=== PATIENT | male | born 1955 | race Caucasian/White ===

== ENCOUNTER 2024-09-22 08:53 | Outpatient (AMB) | payer MEDICARE, SELFPAY ==
--- OUTSIDE RECORDS SUMMARY | 2024-09-22 09:20 | XMS_ITS | Encounter Summary ---
Author Organization [facility] Address [address] [facility] [address] [place] [address] Phone Care Team Providers Care Health Care Coach Name Role Phone Gerard Ribeiro MD Primary Care Provider [phone] Encounter Details Date Type Department Care Team ([facility] st Contact Info) Description 12/03/2020 Procedure Pass [facility] Physicians - Endoscopy - [place] [address] [place] [address] Social History Tobacco Use Types Packs/Day Years Used Date Smoking Tobacco: Never Smokeless Tobacco: Never Alcohol Use Standard Drinks/Week Comments Yes 0 (1 standard drink = 0.6 oz pur e alcohol) occasional Sex and Gender Information Value Date Recorded Sex Assigned at Not on file Gender Identity Not on file Sexual Orientation Not on file documented as of this encounter Plan of Treatment Not on file documented as of this encounter Visit Diagnoses Not on filedocumented in this encounter Care Teams Health Care Coach Relationship Specialty Start Date End Date Gerard Ribeiro MD [address] [place], [place] [address] [address] PCP - General Family Medicine 02/16/20 documented as of this encounter Additional Source Comments The information contained in this document represents components of the legal health record. It is not the complete legal health record.[facility]
--- OUTSIDE RECORDS SUMMARY | 2024-09-22 09:20 | XMS_ITS | Patient Health Record ---
Author Organization [employer] [facility] Address [address] [address] Care Team Providers Care Snow Groomer Name Role Phone NO PCP, no pcp Primary Care Provider Elsa Ribeiro MD, [facility] [phone] Allergies No Known Allergies Reason For Referral No Information Medications Medication SIG (Take, Route, Frequency, Duration) Notes Start Date End Date Status Lisinopril 20 MG TAKE 1 TABLET BY KERRI TH EVERY DAY for 90 days Active Atorvastatin Calcium 20 MG TAKE 1 TABLET BY MOUTH EVERY DAY for 90 Active Esomeprazole Magnesium 20 MG 1 capsule Orally qd Active Immunizations Vaccine Route Administration Date Status Comme nts Moderna Covid 19 Vaccine 2nd dose Unknown 09/25/2020 Ad ministered Moderna Covid 19 Vaccine 2nd dose Unknown 10/23/2020 Ad ministered Moderna Covid 19 Vaccine 2nd dose Unknown 05/13/2021 Ad ministered Prevnar 13 Unknown 04/23/2015 Administered R2V (Shingrix) Unknown 04/06/2021 Administered Tdap Unknown 05/10/2021 Administered Social History Tobacco Use: Social History Observation Description Date Details (start date - stop date) Never Smoker NA - NA Sex Assigned At : Social History Observation Description Sex Assigned At Unknown cigarettes Question Answer Notes Are you a nonsmoker 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 [place] 2 kids 4 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 [place] 2 kids 4 GC retired business architect-From [place] 2 kids 4 GC retired business architect-From [place] 2 kids 4 GC Problems Problem Type SNOMED Code ICD Code Onset Dates Problem Status W/U Status Risk Notes Problem 905242429 Mixed hyperlipidemia (E78.2) Active confirmed Problem 404229294 Chronic GERD (K21.9) Active confirmed Problem 64661620 Hypertension, unspecified type (I10) Active confirmed Encounters Encounter Location Date Provider Diagnosis [facility] In [address] [address] 04/14/2024 Gerard Ribeiro MD Plan Of Treatment No Information Insurance Providers Payer Name Payer Address Payer Phone Subscriber Number Group Number Insured Name Patient Relationship to Insured Coverage Start Date Coverage End Date [employer] Medicare PPO/HMO [address] [place] [phone] [id number] Navneet Schroeder Self - patient is the insured Medicare Part B [address] [facility] [place] [phone] [id number] Navneet Schroeder Self - patient is the insured Medical (General) History Medical History History ICD Code Physical Exam last done on:06/16/2023 htn colonoscopy sched 12/03/20, due 11/2030 GERD hyperlipidemia Surgical History Surgery Date(Month/Year) hernia surgery
--- OUTSIDE RECORDS SUMMARY | 2024-09-22 09:20 | XMS_ITS | Clinical Summary ---
Author Organization [facility] Address [address] [place] [address] Phone Care Team Providers Care Bar Catcher Name Role Phone Gerard Ribeiro MD Primary Care Provider [phone] Allergies No known active allergies Medications Medication Sig Dispensed Refills Start Date End Date Status quinapriL (ACCUPRIL) 10 MG tablet Take 10 mg by mouth daily. 11/16/2020 Active omeprazole (PRILOSEC) 20 mg TbEC Take 20 mg by mouth daily before breakfast. Active Active Problems Problem Noted Date Diagnosed Date Hypertensive disorder Social History Tobacco Use Types Packs/Day Years Used Date Smoking Tobacco: Never Smokeless Tobacco: Never Alcohol Use Standard Drinks/Week Comments Yes 0 (1 standard drink = 0.6 oz pur e alcohol) occasional Education Answer Date Recorded Are you interested in more education? Not on lita e 11/03/2022 Are you concerned about learning? Not on file 11/03/2022 No 11/03/2022 No 11/03/2022 Digital Access Answer Date Recorded No 12/02/2022 No 12/02/2022 No 12/02/2022 Reliable internet access at home? Not on file 12/02/2022 Device with a working camera? Not on file Sex and Gender Information Value Date Recorded Sex Assigned at Not on file Gender Identity Not on file Sexual Orientation Not on file Last Filed Vital Signs Vital Sign Reading Time Taken Comments Blood Pressure 108/56 12/03/2020 1:09 PM EDT Pulse 55 12/03/2020 1:09 PM EDT Temperature 36.2 ??C (97.2 ??F) 12/03/2020 12:22 PM E DT Respiratory Rate 18 12/03/2020 1:09 PM EDT Oxygen Saturation 97% 12/03/2020 1:09 PM EDT Inhaled Oxygen Concentration - - Weight 78.9 kg (174 lb) 12/03/2020 12:22 PM EDT Height 177.8 cm (5' 10 ) 12/03/2020 12:22 PM EDT Body Mass Index 24.97 12/03/2020 12:22 PM EDT Plan of Treatment Health Maintenance Due Date Last Done Comments Adult Td,Tdap Booster 1955 BLOOD PRESSURE 1955 CREATININE LEVEL 1954 LIPID PANEL 1954 POTASSIUM LEVEL 1954 DEPRESSION SCREENING 1966 HEPATITIS C SCREENING 02/18/1972 COLOGUARD 1999 FIT TEST 1999 FOBT 1999 SIGMOIDOSCOPY 1999 VIRTUAL COLONOSCOPY 1999 ZOSTER VACCINES (1 of 2) 02/18/2004 PNEUMOCOCCAL VACCINES (50+ years) (2 of 2 - PPSV23) 04/23/2016 04/23/2015 INFLUENZA VACCINE (#1) 2024 8, 03/30/2017 COVID-19 VACCINE (3 - 2023-2 5 season) 2024 10/23/2020, 09/25/2020 RSV VACCINE (1 - 1-dose 75+ series) 2029 COLONOSCOPY 12/03/2030 12/03/2020 COLORECTAL CANCER SCREENING 12/03/2030 SMOKING STATUS SCREENING (On ce After 26 Yrs) Completed 12/03/2020 HEPATITIS A VACCINES Aged Out No long er eligible based on patient's age to complete this topic HIB VACCINES Aged Out No longer eligi ble based on patient's age to complete this topic MENINGOCOCCAL VACCINES (ACWY) Aged Out No longer eligible based on patient's age to complete this topic Medical Devices Not on file Procedures Procedure Name Priority Date/Time Associated Diagnosis Comments COLONOSCOPY PROCDOC *DO NOT USE* Routine 12/03/2020 12:55 PM EDT Special screening for malignant neoplasms, colon from Last 3 Months or Most Recently Relevant to Health Maintenance Results * COLONOSCOPY PROCDOC *DO NOT USE* (12/03/2020 12:55 PM EDT) Narrative Carolina Morocho MD - 12/03/2020 12:55 PM EDT Carolina Morocho MD ? 12/03/2020 12:56 PM [facility] Navneet Frazier 1955 PROCEDURE: COLONOSCOPY SCREENING Procedure Date: 12/03/20 Prep Quality: ??Excellent Indication: Navneet Frazier is a 65 y.o. male who presents for screening colonoscopy, last colonoscopy was 10 years ago and it was normal. Anesthesia: ?? Propofol per anesthesia Procedure: ?? After discussion of risks, benefits, consequences and alternatives of the procedure and medication, and after reviewing the nursing evaluation, the patient was medicated as above. ?? Digital rectal exam was performed and demonstrated no mass.The colonoscope was introduced and passed to the cecum , which was identified by inspection, palpation, and transillumination. The scope was then withdrawn. The cecum was photographed. Retroflexion of the endoscope in the rectum was ??performed. ??The patient tolerated the procedure well. Findings: ?? The entire examined colonic mucosa was unremarkable. No evidence of colon polyps, tumors, or lesions were found. Retroflexed views demonstrated internal hemorrhoids. ?? Impression: ?? Normal colonoscopy to the cecum with the exception of internal hemorrhoids Recommendations/Plan: ?? Repeat colonoscopy in 10 years time Carolina Morocho MD [facility]ology [facility] [address] [place], [place] Office Office Fax: ??[phone] Carolina [facility] GI PROCEDURE ORDER UZMA from Last 3 Months or Most Recently Relevant to Health Maintenance Care Teams Bar Catcher Relationship Specialty Start Date End Date Gerard Ribeiro MD [address] [place] [address] PCP - General Family Medicine 02/16/20 Additional Source Comments The information contained in this document represents components of the legal health record. It is not the complete legal health record.[facility]
--- OUTSIDE RECORDS SUMMARY | 2024-09-22 09:20 | XMS_ITS ---
Author Organization [facility] Address [address] [place] [address] Care Team Providers Care Quantity Surveyor Name Role Phone NO PCP, no pcp Primary Care Provider Elsa Ribeiro MD, [facility] [phone] REASON FOR VISIT Medical Records Social History Sex Assigned At : Social History Observation Description Sex Assigned At Unknown Encounters Encounter Location Date Provider Diagnosis [facility] Walk In [address] [address] 04/14/2024 Gerard Ribeiro MD Plan Of Treatment No Information Progress Notes * López MERINOoDOB:[birth year] (69 yo M)Acc No.[id number]:04/14/2024 Patient:?SHAHID CALDERONLópez WHITAKER :1955???Age:69 Y???Sex:Male Address:[address] [place] [address], [address] * true * Date:? Generated for Mikeli carolina/Rod/eTransmitting on:?09/22/2024 09:20 AM EDT
--- OUTSIDE RECORDS SUMMARY | 2024-09-22 09:20 | XMS_ITS ---
Author Organization [facility] Address [address] [place] [address] Care Team Providers Care Machine Maintenance Servicer Name Role Phone NO PCP, no pcp Primary Care Provider Elsa Ribeiro MD, [facility] [phone] Social History Sex Assigned At : Social History Observation Description Sex Assigned At Unknown Encounters Encounter Location Date Provider Diagnosis [facility] Walk In [address] [address] 07/17/2023 Gerard Ribeiro MD Plan Of Treatment No Information Progress Notes * López SCHROEDERoDOB:[birth year] (68 yo M)Acc No.[id number]:07/17/2023 CONFIDENTIAL ENCOUNTER Patient:?López SCHROEDER :1955???Age:68 Y???Sex:Male Address:[address] [place] [address], [address] * true * Date:? Generated for Mikeli carolina/Rod/eTransmitting on:?09/22/2024 09:20 AM EDT
--- OUTSIDE RECORDS SUMMARY | 2024-09-22 09:20 | XMS_ITS ---
Author Organization [facility] Address [address] [place] [address] Care Team Providers Care Geophysical Prospecting Permit Agent Name Role Phone NO PCP, no pcp Primary Care Provider Elsa Ribeiro MD, Gerard Unavailable [phone] Duran REYEZ, Pam Unavailable REASON FOR VISIT Follow up HTN Social History Sex Assigned At : Social History Observation Description Sex Assigned At Unknown Encounters Encounter Location Date Provider Diagnosis [facility] [employer] In [address] [address] 07/27/2023 Pam Garzon NP Plan Of Treatment No Information Progress Notes * López MERINOoDOB:[birth year] (69 yo M)Acc No.[id number]:07/27/2023 Progress Notes Patient:?López MERINO ruby Provider:?Pam Garzon CNP :1955???Age:68 Y???Sex:Male Ace e:07/27/2023 Address:[address] [place], [place] [id number] Pcp:no pcp NO PCP Subjective: * Chief Complaints: * ???1. Follow up HTN. * Medical History:? Objective: * Vitals:? Assessment: Plan: * Treatment: * Billing Information: * Visit Code:? * Procedure Codes:? * Electronic signature of Mireya Garzon NP , BLACKSMITH HELPER on 09/22/2024 at 09:20 AM EDT Sign off status: Pending * Provider:?Pam Garzon SHIFT SUPERVISOR MELTING Date:? 07/27/2023 Generated for Jett figueroa/Rod/Kathleenitting on:?09/22/2024 09:20 AM EDT
--- NOTE | 2024-09-22 09:36 | A.OFFVIS_ITS ---
Intake Visit Reasons: BPH Intake Note: New patient presents today for initial visit for BPH Urology Medication:none Blood Thinner:none Antibiotic Allergies:none PVR:39ml Policy Value Calculator Required: Yes Allergies No Known Allergies Allergy (Verified 09/22/24 10:46) HPI Comments Details: History of Present Illness The patient is a 69-year-old male presenting with symptoms of Benign Prostatic Hyperplasia (BPH). Over the past year, he has experienced nocturia, with the need to urinate three to five times a night. His urinary stream has a low flow, particularly noted when delaying urination, which leads to discomfort. A year prior, he used Tamsulosin (Flomax) but had to discontinue its use after experiencing dizziness and headaches due to hypotension. Currently, he prefers not to use medication for BPH. The patient reports no history of urinary tract infections or kidney stones. His medical conditions include hypertension, treated with Lisinopril, and gastroesophageal reflux disease, managed with Omeprazole. Previous investigations noted no signs of infection or blood in the urine, with a bladder scan showing a residual volume of 39 mL. Urinary Symptoms Review - Nocturia: 3 to 5 times per night - Low flow urinary stream, particularly when delaying urination - Discomfort if postponing urination - Adequate flow during the day when voiding promptly - Previous trial of Tamsulosin (Flomax) discontinued due to dizziness and headaches from hypotension Results - Urinalysis: Leukocytes negative, blood negative - Bladder scan PVR: 39 mL, within normal limits Discussion Notes Today, we discussed the patient's current symptoms attributed to Benign Prostatic Hyperplasia (BPH), including nocturia and low urinary flow. He reported adverse effects from the past use of Tamsulosin (Flomax), notably dizziness and hypotension, leading to its discontinuation. I offered an alternative, Silodosin (Rapaflo), which he wished to avoid in favor of exploring surgical options. I discussed the different surgical interventions for BPH, including the GreenLight Laser procedure available at our facility. We emphasized that the choice of procedure depends largely on prostate size. We will first conduct a transabdominal ultrasound of the kidneys, bladder, and prostate, along with a PSA blood test, to inform the decision-making process. The patient will return for a follow-up appointment to discuss these results and potential cystoscopy to further evaluate the urethra and bladder. Plan For management of Benign Prostatic Hyperplasia BPH), we will perform an ultr asound of the kidneys, bladder, and prostate, along with a PSA blood test, to evaluate prostate health further and determine eligibility for surgical intervention. The patient opted to forego Silodosin Rapaflo) at this time, preferring a potential surgical solution. Upon receipt of test results, further discussions regarding appropriate intervention, including possible cystoscopy and the GreenLight Laser procedure, will be held. Patient Instructions - Schedule and complete the ultrasound of the kidneys, bladder, and prostate. - Obtain a PSA blood test, preferably fasting in the morning and avoiding caffeine intake prior. - Limit caffeinated beverages and fluid intake in the evening to alleviate nocturia. - Follow up as scheduled for further discussions on potential surgical intervention. - Provide pharmacy information for any necessary prescriptions following follow- up evaluation. Patient was informed and verbally consented to the use of an ambient scribe for clinic note documentation during this visit. [facility] Medical History (Updated 09/22/24 @ 11:17 by Pham Tineo) HTN (hypertension) Review of Systems Const All systems reviewed & are unremarkable except as noted in HPI and below Reports no additional complaints Eyes Reports no additional complaints ENT Reports no additional complaints Card Reports no additional complaints Resp Reports no additional complaints GI Reports no additional complaints Reports as per HPI Musc Reports no additional complaints Skin/Breast Reports system reviewed and no additional complaints, except as documented Neuro Reports no additional complaints Psych Reports no additional complaints Endo Reports no additional complaints Kenrick/Lymph Reports no additional complaints Aller/Immun Reports no additional complaints Physical Exam Const General: healthy appearing, no acute distress and well developed Orientation/consciousness: patient oriented x3 HEENT Head: Yes normocephalic and Yes atraumatic Eyes Conjunctivae: conjunctivae normal Neck Neck: Yes normal visual inspection Chest Chest palpation & inspection: normal inspection of the chest Resp Effort & Inspection: normal respiratory effort GI Inspection: Yes normal to inspection Palpation (GI): Soft to palpation Other: Prostate Exam: Neuro General: patient oriented x3 Psych Appearance: grossly normal Affect: normal affect Office Procedures Post Void Residual Post Residual Void Post Void Residual (PVR): 39 [id number] Void Residual by ultrasound Results AMB Urinalysis, Automated UA Leukoctes 0 Flex/uL Last Edit by Pham Tineo on 09/22/24 11:28 UA Nitrite Negative Last Edit by Pham Tineo on 09/22/24 11:28 UA Urobilinogen 3.5 mg/dL Last Edit by Pham Tineo on 09/22/24 11:28 UA Protein 0 mg/dL Last Edit by Pham Tineo on 09/22/24 11:28 UA pH 6.5 Last Edit by Pham Tineo on 09/22/24 11:28 UA Blood 0 Omero/uL Last Edit by Pham Tineo on 09/22/24 11:28 UA Specific [place] 1.010 Last Edit by Pham Tineo on 09/22/24 11:28 UA Ketone Negative Last Edit by Pham Tineo on 09/22/24 11:28 UA Bilirubin 0 mg/dL Last Edit by Pham Tineo on 09/22/24 11:28 UA Glucose 0 mg/dL Last Edit by Pham Tineo on 09/22/24 11:28 Results Reviewed Results Reviewed: Laboratory Last Values Urine pH (Auto) 6.5 09/22/24 10:46 Specific [place] (Auto) 1.010 09/22/24 10:46 Urine Protein (Auto) 0 mg/dL 09/22/24 10:46 Glucose (UA)(Auto) 0 mg/dL 09/22/24 10:46 Urine Ketones (Auto) Negative 09/22/24 10:46 Urine Blood (Auto) 0 Omero/uL 09/22/24 10:46 Urine Nitrite (Auto) Negative 09/22/24 10:46 Urine Bilirubin (Auto) 0 mg/dL 09/22/24 10:46 Urine Urobilinogen (Auto) 3.5 mg/dL 09/22/24 10:46 Leukocyte Esterase (Auto) 0 Flex/uL 09/22/24 10:46 Assessment & Plan Assessment & Plan (1) BPH loc w urin obs/LUTS: Code(s): N40.1 - Benign prostatic hyperplasia with lower urinary tract symptoms Category: Medical (2) Nocturia more than twice per night: Code(s): R35.1 - Nocturia Category: Medical Orders: Orders US retroperitoneal comp Today N40.1 - Benign prostatic hyperplasia with lower urinary tract symptoms, R35.1 - Nocturia AMB Urinalysis Automated Today Z13.9 - Encounter for screening, unspecified PSA,Total (Free>4and<10) Today N40.1 - Benign prostatic hyperplasia with lower urinary tract symptoms, R35.1 - Nocturia Coding Diagnoses BPH loc w urin obs/LUTS N40.1 Nocturia more than twice per night R35.1 CPT Codes Post Residual Void - PVR CPT Code: 08633-Bhde Void Residual by ultrasound ([id number])
== END 2024-09-22 10:53 | disposition home or self-care (01) ==
LOC: HO.HUSH 08:53
PROVIDERS: PCP Internal Medicine; Visit Provider Urology
DX: Z13.9 Encounter for screening, unspecified (principal)

== ENCOUNTER → 2024-09-22 08:53 | Outpatient (BNVA) | payer MEDICARE, SELFPAY | PROVIDERS: PCP Internal Medicine; Visit Provider Urology | DX: N40.1 Benign prostatic hyperplasia with lower urinary tract symptoms (principal); R35.1 Nocturia | CPT/HCPCS: 51798; 81003; 99202 ==

== ENCOUNTER 2024-10-17 09:24 | Outpatient (REF) | payer MEDICARE, SELFPAY ==
[2024-10-17 09:49] LABS: MANUAL DIFF FLAG NO
--- OUTSIDE RECORDS SUMMARY | 2024-10-17 09:50 | XMS_ITS ---
Author Organization [facility] Address [address] [place] [address] Care Team Providers Care Communication Manager Name Role Phone NO PCP, no pcp Primary Care Provider Elsa Ribeiro MD, Gerard Unavailable [phone] Duran REYEZ, Pam Unavailable REASON FOR VISIT Follow up HTN Social History Sex Assigned At : Social History Observation Description Sex Assigned At Unknown Encounters Encounter Location Date Provider Diagnosis [facility] In [address] [address] 07/27/2023 Pam Garzon NP Plan Of Treatment No Information Progress Notes * López MERINOoDOB:[birth year] (69 yo M)Acc No.[id number]:07/27/2023 Progress Notes Patient:?López MERINO Provider:?Pam Garzon CNP :1955???Age:68 Y???Sex:Male Ace e:07/27/2023 Address:[address] [place], [place] [address] Pcp:no pcp NO PCP Subjective: * Chief Complaints: * ???1. Follow up HTN. * Medical History:? Objective: * Vitals:? Assessment: Plan: * Treatment: * Billing Information: * Visit Code:? * Procedure Codes:? * Electronic signature of Mireya Garzon NP , LABORATORY MILLER on 10/17/2024 at 09:50 AM EDT Sign off status: Pending * Provider:?Pam Garzon CHICKEN HANDLER Date:? 07/27/2023 Generated for Jett figueroa/Rod/Galina on:?10/17/2024 09:50 AM EDT
--- OUTSIDE RECORDS SUMMARY | 2024-10-17 09:51 | XMS_ITS ---
Author Organization [facility] Address [address] [place] [address] Care Team Providers Care Industrial Illuminating Engineer Name Role Phone NO PCP, no pcp Primary Care Provider Elsa Ribeiro MD, [facility] [phone] REASON FOR VISIT Medical Records Social History Sex Assigned At : Social History Observation Description Sex Assigned At Unknown Encounters Encounter Location Date Provider Diagnosis [facility] Walk In [address] [address] 04/14/2024 Gerard Ribeiro MD Plan Of Treatment No Information Progress Notes * López MERINOoDOB:[birth year] (69 yo M)Acc No.[id number]:04/14/2024 Patient:?SHAHID CALDERONLópez WHITAKER :1955???Age:69 Y???Sex:Male Address:[address] [place] [address], [address] * true * Date:? Generated for Mikeli carolina/Rod/eTransmitting on:?10/17/2024 09:51 AM EDT
--- OUTSIDE RECORDS SUMMARY | 2024-10-17 09:51 | XMS_ITS ---
Author Organization [facility] an d Walk In [facility] Address [address] [place] [address] Care Team Providers Care Special Library Librarian Name Role Phone NO PCP, no pcp Primary Care Provider Elsa Ribeiro MD, [facility] [phone] Social History Sex Assigned At : Social History Observation Description Sex Assigned At Unknown Encounters Encounter Location Date Provider Diagnosis [facility] Walk In [address] [address] 07/17/2023 Gerard Ribeiro MD Plan Of Treatment No Information Progress Notes * López MERINOoDOB:[birth year] (68 yo M)Acc No.[id number]:07/17/2023 CONFIDENTIAL ENCOUNTER Patient:?KEY López BELL :1955???Age:68 Y???Sex:Male Address:[address] [place] [address], [address] * true * Date:? Generated for Mikeli carolina/Rod/eTransmitting on:?10/17/2024 09:51 AM EDT
[2024-10-17 10:44] LABS: Basophils Percent Auto 0.5 % (0-2); Eosinophils Absolute Auto 0.1 X10*3/uL (0.0-0.4); Eosinophils Percent Auto 2.4 % (0-4); Hematocrit 41.7 % (42.0-52.0); Hemoglobin 13.9 g/dl (14.0-18.0); Imm Gran Abs Auto 0.02 X10*3/uL (0.00-0.03); Imm Gran Pct Auto 0.3 % (0.0-0.4); Lymphocytes Absolute Auto 2.4 X10*3/uL (1.2-4.9); Lymphocytes Percent Auto 40.6 % (20-40); Mean Corpuscular HGB Conc 33.3 g/dl (31.0-36.0); Mean Corpuscular Hemoglobin 30.3 pg (27.0-33.0); Mean Platelet Volume 9.5 fL (9.4-12.4); Monocytes Absolute Auto 0.5 X10*3/uL (0.1-1.2); Monocytes Percent Auto 8.3 % (2-11); Neutrophils Absolute Auto 2.8 x10*3/uL (2.0-8.3); Neutrophils Percent Auto 47.9 % (45-73); Platelet Count 309 X10*3/uL (160-400); Red Blood Count 4.58 X10*6/uL (4.60-5.80); Red Cell Distribution Width 12.8 % (11.0-16.0); White Blood Count 5.9 X10*3/uL (4.8-10.8)
[2024-10-17 10:53] LABS: Estimated Average Glucose 103 mg/dL; Hemoglobin A1C 126.3258 umol/L; Hemoglobin A1c % 5.2 % (<6.0); Total Hemoglobin (HGBA1C) 3743.0678 umol/L
[2024-10-17 11:23] LABS: Alanine Aminotransferase 23 U/L (0-40); Albumin Level 4.2 g/dL (3.5-5.0); Alkaline Phosphatase 82 U/L (39-117); Anion Gap 8 (12-20); Aspartate Amino Transferase 45 U/L (5-37); Bilirubin Total 0.5 mg/dL (0.0-1.0); Blood Urea Nitrogen 15 mg/dL (9-16); Calcium 9.4 mg/dL (8.4-10.2); Carbon Dioxide 30 mmol/L (22-29); Chloride 106 mmol/L (96-108); Cholesterol 170 mg/dL (<200); Estimated Glomerular Filt Rate > 60; Glucose Random 68 mg/dL (60-115); HDL Cholesterol 35 mg/dL (>40); LDL Cholesterol Calculated 111 mg/dL (<100); Potassium 4.3 mmol/L (3.3-5.1); Sodium 140 mmol/L (135-145); Triglycerides 120 mg/dL (<150)
[2024-10-17 11:34] LABS: PSA,Total (Free>4and<10) 0.96 ng/mL (0.00-4.00)
[2024-10-17 11:38] LABS: Vitamin D 25-OH Total 35.6 ng/mL (>30)
[2024-10-17 11:44] LABS: TSH reflex Free T4 0.82 uIU/mL (0.32-4.0)
[2024-10-17 11:49] LABS: Folate 13.1 ng/mL (> or = 4.0); Vitamin B12 779 pg/mL (200-900)
== END 2024-10-17 09:25 | disposition home or self-care (01) ==
LOC: HO.LAB 09:24
PROVIDERS: Absent Provider Urology; PCP Internal Medicine; Visit Provider Internal Medicine
DX: Z00.01 Encounter for general adult medical examination with abnormal findings (principal); K21.9 Gastro-esophageal reflux disease without esophagitis; I10 Essential (primary) hypertension; E78.2 Mixed hyperlipidemia; R35.1 Nocturia; N40.1 Benign prostatic hyperplasia with lower urinary tract symptoms; Z12.5 Encounter for screening for malignant neoplasm of prostate; Z13.1 Encounter for screening for diabetes mellitus
CPT/HCPCS: 36415; 80053; 80061; 82306; 82607; 82746; 83036; 84153; 84443; 85025

== ENCOUNTER 2024-10-24 10:40 | Outpatient (REF) | payer MEDICARE, SELFPAY ==
--- NOTE | ~2024-10-24 | US_ITS ---
CLINICAL HISTORY: N40.1 - Benign prostatic hyperplasia with lower urinary tract symptoms --- Addition al Notes or Special Instructions: Please measure prostate US Renal Comparison: None Findings: Right kidney normal size and echotexture, 14.4 cm length. Possible duplex kidney. Left kidney normal size and echotexture, 11.7 cm length. No hydronephrosis of either kidney. Normal color Doppler. Urinary bladder is unremarkable. Prevoid volume 185 mL. Postvoid volume 72 mL. The prostate is enlarged with an estimated volume of 107 mL. Bilateral ureteral jets are visualized. IMPRESSION: 1. Enlarged prostate. Significant postvoid residual within the bladder of 72 mL. 2. Possible duplex right kidney. Both ureteral jets identified. This document has been electronically signed by: Skye Suazo MD on 10/25/2024 09:29:39
--- OUTSIDE RECORDS SUMMARY | 2024-10-24 11:43 | XMS_ITS | Clinical Summary ---
Author Organization [facility] Address [address] [place] [address] Phone Care Team Providers Care Circuit Manager Name Role Phone Gerard Ribeiro MD Primary Care Provider [phone] Allergies No known active allergies Medications Medication [...] Carolina Morocho MD ? 12/03/2020 12:56 PM [facility] Navneet Frazier 1955 PROCEDURE: COLONOSCOPY [...] Carolina Morocho MD Gastroenterology & Hepatology [address] [place], [place] Office Office Fax: ??[phone] Carolina [facility] GI PROCEDURE ORDER UZMA from Last 3 Months or Most Recently Relevant to Health Maintenance Frazier, Navneet Personal/Family Self [address] [place] [address] Frazier, Navneet Personal/Family Self [address] [place] [address] Frazier, Navneet Personal/Family Self [address] [place] [address] Care Teams Circuit Manager Relationship Specialty Start Date End Date Gerard Ribeiro MD [address] [place] [address] PCP - General Family Medicine 02/16/20 Additional Source Comments The information contained in this document represents components of the legal health record. It is not the complete legal health record.[facility]
--- OUTSIDE RECORDS SUMMARY | 2024-10-24 11:43 | XMS_ITS | Patient Health Record ---
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 4 GC retired business office associate 2 kids 4 GC retired business office associate-From [place] 2 kids 4 GC retired business office associate 2 kids 4 GC retired business office associate 2 kids 4 GC retired business office associate 2 kids 4 GC retired business office associate-From [place] 2 kids 4 GC retired business office associate-From [place] 2 kids 4 GC retired business office associate-From [place] 2 kids 4 GC Problems Problem Type SNOMED Code ICD Code Onset Dates Problem Status W/U Status Risk Notes Problem 487521836 Mixed hyperlipidemia (E78.2) Active confirmed Problem 554182231 Chronic GERD (K21.9) Active confirmed Problem 00176262 Hypertension, unspecified type (I10) Active confirmed Encounters Encounter Location Date Provider Diagnosis [facility] In [address] [address] 04/14/2024 Gerard Ribeiro MD Plan Of Treatment No Information Insurance Providers Payer Name Payer Address Payer Phone Subscriber Number Group Number Insured Name Patient Relationship to Insured Coverage Start Date Coverage End Date Aetna Medicare PPO/HMO [address] [place] [address] [id number] Navneet Schroeder Self - patient is the insured Medicare Part B [address] [facility] [place] [phone] [id number] Navneet Schroeder Self - patient is the insured Medical (General) History Medical History History ICD Code Physical Exam last done on:06/16/2023 htn colonoscopy sched 12/03/20, due 11/2030 GERD hyperlipidemia Surgical History Surgery Date(Month/Year) hernia surgery
--- OUTSIDE RECORDS SUMMARY | 2024-10-24 11:43 | XMS_ITS ---
Author Organization [facility] Address [address] [place] [address] Care Team Providers Care Composite Bond Technician Name Role Phone NO PCP, no pcp Primary Care Provider Elsa Ribeiro MD, Gerard Unavailable [phone] Duran REYEZ, Pam Unavailable [phone] REASON FOR VISIT Follow up HTN Social History Sex Assigned At : Social History Observation Description Sex Assigned At Unknown Encounters Encounter Location Date Provider Diagnosis [facility] In [address] [address] 07/27/2023 Pam Garzon NP Plan Of Treatment No Information Progress Notes * López MERINOoDOB:[birth year] (69 yo M)Acc No.[id number]:07/27/2023 Progress Notes Patient:?López MERINO ruby Provider:?Pam Garzon CNP :1955???Age:68 Y???Sex:Male Ace e:07/27/2023 Address:[address] [place], [place] [address] Pcp:no pcp NO PCP Subjective: * Chief Complaints: * ???1. Follow up HTN. * Medical History:? Objective: * Vitals:? Assessment: Plan: * Treatment: * Billing Information: * Visit Code:? * Procedure Codes:? * Electronic signature of Mireya Garzon NP , DATA PROCESSING SYSTEMS CONSULTANT on 10/24/2024 at 11:43 AM EDT Sign off status: Pending * Provider:?aPm Garzon WORSHIP PASTOR Date:? 07/27/2023 Generated for Jett figueroa/Rod/Kathleenitting on:?10/24/2024 11:43 AM EDT
--- OUTSIDE RECORDS SUMMARY | 2024-10-24 11:43 | XMS_ITS | Encounter Summary ---
Author Organization [facility] Address [address] [facility] [address] [place] [address] Phone Care Team Providers Care Restorative Rehab Aide Name Role Phone Gerard Ribeiro MD Primary Care Provider [phone] Encounter Details Date Type Department Care Team ([facility] st Contact Info) Description 12/03/2020 Procedure Pass [facility] Physicians - Endoscopy - [place] [address] [place] [address] Social History Tobacco Use Types Packs/Day Years [...] on filedocumented in this encounter Care Teams Restorative Rehab Aide Relationship Specialty Start Date End Date Gerard Ribeiro MD [address] [place], [place] [address] [address] PCP - General Family Medicine 02/16/20 documented as of this encounter Additional Source Comments The information contained in this document represents components of the legal health record. It is not the complete legal health record.[facility]
== END 2024-10-24 10:41 | disposition home or self-care (01) ==
LOC: HO.US 10:40
PROVIDERS: Visit Provider Urology
DX: N40.1 Benign prostatic hyperplasia with lower urinary tract symptoms (principal); R35.1 Nocturia
CPT/HCPCS: 76770

== ENCOUNTER → 2024-10-24 10:43 | Outpatient (BNV) | payer MEDICARE, SELFPAY | PROVIDERS: Visit Provider Radiology Diagnostic Radiology | DX: N40.1 Benign prostatic hyperplasia with lower urinary tract symptoms (principal) | CPT/HCPCS: 76770 ==

== ENCOUNTER 2024-11-13 09:55 | Outpatient (AMB) | payer MEDICARE, SELFPAY ==
--- NOTE | 2024-11-13 10:23 | MHC.OFFVIS ---
Intake Visit Reasons: cysto/US/PSA Intake Note: Patient presents today for a cystoscopy/US/PSA 10/17 PSA: 0.96 Urology Medication:none Blood Thinner:none Antibiotic Allergies:none Detail Assembler Required: Yes Allergies No Known Allergies Allergy (Verified 11/13/24 10:37) Medication List - Last Reconciled 11/13/24 by Kilo Mccray MD finasteride (Proscar) 5 mg PO DAILY lisinopril 10 mg PO DAILY omeprazole 40 mg PO DAILY HPI Comments Details: 11/13/24-- Here for office cystoscopy: Cystoscopy findings: prostatic urethra trilobar enlargement, bulbous urethra WNL, no suspicious bladder lesions visualized. The patient is a 69-year-old male presenting with obstructive voiding symptoms. He was initially evaluated on September 22, 2024, with symptoms consistent with benign prostatic hyperplasia. The patient experienced adverse blood pressure effects from tamsulosin, leading to its discontinuation. His symptoms continue to persist and include urinary obstruction. The patient wants to proceed with surgical management. Will start proscar 5 mg for at least 3 months prior to green light laser with Dr. Allan. Results - US Retroperitoneam--10/24/24-Prostate ultrasound indicating enlarged prostate with an estimated volume of 107 mL 09/22/24--69-year-old male presenting with symptoms of Benign Prostatic Hyperplasia (BPH). Over the past year, he has experienced nocturia, with the need to urinate three to five times a night. His urinary stream has a low flow, particularly noted when delaying urination, which leads to discomfort. A year prior, he used Tamsulosin (Flomax) but had to discontinue its use after experiencing dizziness and headaches due to hypotension. Currently, he prefers not to use medication for BPH. The patient reports no history of urinary tract infections or kidney stones. His medical conditions include hypertension, treated with Lisinopril, and gastroesophageal reflux disease, managed with Omeprazole. Previous investigations noted no signs of infection or blood in the urine, with a bladder scan showing a residual volume of 39 mL. For management of Benign Prostatic Hyperplasia BPH), we will perform an ultrasound of the kidneys, bladder, and prostate, along with a PSA blood test, to evaluate prostate health further and determine eligibility for surgical intervention. The patient opted to forego Silodosin Rapaflo) at this time, preferring a potential surgical solution. Upon receipt of test results, further discussions regarding appropriate intervention, including possible cystoscopy and the GreenLight Laser procedure Urinary Symptoms Review - Nocturia: 3 to 5 times per night - Low flow urinary stream, particularly when delaying urination - Discomfort if postponing urination Results - Urinalysis: Leukocytes negative, blood negative - Bladder scan PVR: 39 mL, within normal limits PFSH Medical History HTN (hypertension) Office Procedures Cystoscopy Consent Discussed risk and benefit or proposed procedure with the patient. Information consent for procedure given to the patient. Discussed technical aspects, risks, benefits and alternatives in full. Addressed all of the patient's questions and concerns regarding the procedure. The patient demonstrated knowledge and understanding. They wish to proceed with this procedure. Preparation The patient was prepped in the usual manner. A career education teacher was present and in the room. Genitalia was prepped with betadine solution in a sterile manner. Lidocaine Jelly 2% was placed into the urethra and 16Fr flexible Olympus cystoscope was inserted into the meatus after adequate lubrication. Procedure Time out per protocol performed. The flexible cystoscope is passed transurethrally: The bladder was inspected in its entirety with utilization retroflexion displaying: Tumor(s): no suspicious bladder lesions visualized Trabeculation: Mild Moderate with cellule changes Mucosal Erthema: NA Orifices: normal shape and position Urethra: normal Cystoscopy findings: prostatic urethra trilobar enlargement, bulbous urethra WNL, no suspicious bladder lesions visualized [id number] DISPOSABLE SCOPE URO-G FLEXIBLE SCOPE Procedure code (CPT) selection complete Office Meds lidocaine HCl 2 % mucosal jelly in applicator Performing Provider: Kilo Mccray MD Performing Location: [facility] Administered by: Miles Pérez LPN on 11/13/24 10:49 Dose Route Admin Location Dispensed Lot Number Expiration Date [facility] Merchandise Presentation Associate 10 mL intra-urethral 20 mL ciprofloxacin HCl 500 mg tablet Performing Provider: Kilo Mccray MD Performing Location: [facility] Administered by: Miles Pérez LPN on 11/13/24 10:49 Dose Route Admin Location Dispensed Lot Number Expiration Date [facility] Merchandise Presentation Associate 500 mg PO 1 tab phenazopyridine 200 mg tablet Performing Provider: Kilo Mccray MD Performing Location: [facility] Administered by: Miles Pérez LPN on 11/13/24 10:49 Dose Route Admin Location Dispensed Lot Number Expiration Date [employer] Merchandise Presentation Associate 200 mg PO 1 tab Results Reviewed Results Reviewed: Date of Service: 10/24/24 CLINICAL HISTORY: N40.1 - Benign prostatic hyperplasia with lower urinary tract symptoms --- Additional Notes or Special Instructions: Please measure prostate US Renal Comparison: None Findings: Right kidney normal size and echotexture, 14.4 cm length. Possible duplex kidney. Left kidney normal size and echotexture, 11.7 cm length. No hydronephrosis of either kidney. Normal color Doppler. Urinary bladder is unremarkable. Prevoid volume 185 mL. Postvoid volume 72 mL. The prostate is enlarged with an estimated volume of 107 mL. Bilateral ureteral jets are visualized. IMPRESSION: 1. Enlarged prostate. Significant postvoid residual within the bladder of 72 mL. 2. Possible duplex right kidney. Both ureteral jets identified. Assessment & Plan Assessment & Plan (1) BPH loc w urin obs/LUTS: Code(s): N40.1 - Benign prostatic hyperplasia with lower urinary tract symptoms Category: Medical (2) Nocturia more than twice per night: Code(s): R35.1 - Nocturia Category: Medical Plan Will start proscar 5 mg for at least 3 months prior to green light laser with Dr. Allan. Orders: Orders AMB Cystoscopy Today N40.1 - Benign prostatic hyperplasia with lower urinary tract symptoms, R35.1 - Nocturia Medications: New finasteride (Proscar) 5 mg PO DAILY 90 tabs 3RF Patient Instructions: The patient had an opportunity to ask questions regarding treatment plan. The patient expressed understanding and agreement with the above treatment plan. The patient is aware they should contact our office by phone for worsening of their current condition or the appearance of new symptoms. Compliance is encouraged with any medications and followup testing that is ordered. It is a privilege to be allowed the opportunity to participate in the urologic care of your patient. If you have any questions or concerns regarding treatment for the above conditions please do not hesitate to contact me. The office telephone contact is [phone]. This note is constructed in part using voice recognition software. While every effort has been made to ensure accuracy tire design engineer errors may have been included. Yours sincerely, Kilo Mccray MD Scribe Plan - Not visible on output: Patient was informed and verbally consented to the use of an ambient scribe for clinic note documentation during this visit. Coding Level of Care Code Est Pt Level 4 (39476) Diagnoses BPH loc w urin obs/LUTS N40.1 Nocturia more than twice per night R35.1 CPT Codes Cystoscopy - CPT: 46742-[id number] ([id number])
--- OUTSIDE RECORDS SUMMARY | 2024-11-13 10:50 | XMS_ITS | Patient Health Record ---
Author Organization [employer] [facility] Address [address] [address] Care Team Providers Care Supervisor Industrial Arts Education Name Role Phone NO PCP, no pcp Primary Care Provider Elsa Ribeiro MD, 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 4 GC retired business systems manager 2 kids 4 GC retired business systems manager-From [place] 2 kids 4 GC retired business systems manager-From [place] 2 kids 4 GC retired business systems manager 2 kids 4 GC retired business systems manager 2 kids 4 GC retired business systems manager-From [place] 2 kids 4 GC retired business systems manager 2 kids 4 GC retired business systems manager-From [place] 2 kids 4 GC Problems Problem Type SNOMED Code ICD Code Onset Dates Problem Status W/U Status Risk Notes Problem 444060234 Mixed hyperlipidemia (E78.2) Active confirmed Problem 320121075 Chronic GERD (K21.9) Active confirmed Problem 85765099 Hypertension, unspecified type (I10) Active confirmed Encounters Encounter Location Date Provider Diagnosis [facility] In [address] [address] 04/14/2024 Gerard Ribeiro MD Plan Of Treatment No Information Insurance Providers Payer Name Payer Address Payer Phone Subscriber Number Group Number Insured Name Patient Relationship to Insured Coverage Start Date Coverage End Date Aetna Medicare PPO/HMO [address] [place] [address] [id number] Navneet Schroeder Self - patient is the insured Medicare Part B [address] [facility] [place] [phone] [id number] Navneet Schroeder Self - patient is the insured Medical (General) History Medical History History ICD Code Physical Exam last done on:06/16/2023 htn colonoscopy sched 12/03/20, due 11/2030 GERD hyperlipidemia Surgical History Surgery Date(Month/Year) hernia surgery
--- OUTSIDE RECORDS SUMMARY | 2024-11-13 10:50 | XMS_ITS ---
Author Organization [facility] Address [address] [place] [address] Care Team Providers Care Integration Specialist Name Role Phone NO PCP, no pcp Primary Care Provider Elsa Ribeiro MD, Gerard Unavailable [phone] Duran REYEZ, Pam Unavailable REASON FOR VISIT Follow up HTN Social History Sex Assigned At : Social History Observation Description Sex Assigned At Unknown Encounters Encounter Location Date Provider Diagnosis [facility] In [address] [address] 07/27/2023 Pam Garzon NP Plan Of Treatment No Information Progress Notes * López MERINOoDOB:[birth year] (69 yo M)Acc No.[id number]:07/27/2023 Progress Notes Patient:?SHAHID OWENGASLópez ruby Provider:?Pam Garzon CNP :1955???Age:68 Y???Sex:Male Ace e:07/27/2023 Address:[address] [place], [place] [address] Pcp:no pcp NO PCP Subjective: * Chief Complaints: * ???1. Follow up HTN. * Medical History:? Objective: * Vitals:? Assessment: Plan: * Treatment: * Images: Billing Information: * Visit Code:? * Procedure Codes:? * Electronic signature of Mireya Garzon NP , MOTORCOACH DRIVER on 11/13/2024 at 10:50 AM EDT Sign off status: Pending * Provider:?Pam Garzon EXTENSION SERVICE AGENT Date:? 07/27/2023 Generated for Jett figueroa/Rod/Kathleenitting on:?11/13/2024 10:50 AM EDT
--- OUTSIDE RECORDS SUMMARY | 2024-11-13 10:50 | XMS_ITS | Encounter Summary ---
Author Organization [facility] Address [address] [facility] [address] [place] [address] Phone Care Team Providers Care Mosaic Tile Maker Name Role Phone Gerard Ribeiro MD Primary Care Provider [phone] Encounter Details Date Type Department Care Team ([facility] st Contact Info) Description 12/03/2020 Procedure Pass [facility] Physicians - Endoscopy - [place] [address] [place] [address] Social History Tobacco Use Types Packs/Day Years [...] on filedocumented in this encounter Care Teams Mosaic Tile Maker Relationship Specialty Start Date End Date Gerard Ribeiro MD [address] [place], [place] [address] [address] PCP - General Family Medicine 02/16/20 documented as of this encounter Additional Source Comments The information contained in this document represents components of the legal health record. It is not the complete legal health record.[facility]
--- OUTSIDE RECORDS SUMMARY | 2024-11-13 10:50 | XMS_ITS | Clinical Summary ---
Author Organization [facility] Address [address] [place] [address] Phone Care Team Providers Care Kettleman Name Role Phone Gerard Ribeiro MD Primary Care Provider [phone] Allergies No known active allergies Medications Medication [...] MD ? 12/03/2020 12:56 PM [facility] Navneet Frazier 1955 PROCEDURE: COLONOSCOPY [...] Carolina Morocho MD Gastroenterology & Hepatology [address] [place], [place] Office Office Fax: ??[phone] Carolina WATSON GI PROCEDURE ORDER UZMA from Last 3 Months or Most Recently Relevant to Health Maintenance Care Teams Kettleman Relationship Specialty Start Date End Date Gerard Ribeiro MD [address] [place] [address] PCP - General Family Medicine 02/16/20 Additional Source Comments The information contained in this document represents components of the legal health record. It is not the complete legal health record.[facility]
== END 2024-11-13 11:39 | disposition home or self-care (01) ==
LOC: HO.HUSH 09:55
PROVIDERS: Visit Provider Urology
DX: N40.1 Benign prostatic hyperplasia with lower urinary tract symptoms (principal); R35.1 Nocturia; Z13.9 Encounter for screening, unspecified
CPT/HCPCS: 52000; 99214

== ENCOUNTER → 2024-11-13 09:55 | Outpatient (BNVA) | payer MEDICARE, SELFPAY | PROVIDERS: Visit Provider Urology | DX: N40.1 Benign prostatic hyperplasia with lower urinary tract symptoms (principal); R35.1 Nocturia | CPT/HCPCS: 52000; 81003; 99212 ==

== ENCOUNTER 2025-02-10 09:02 | Outpatient (AMB) | payer MEDICARE, SELFPAY ==
--- NOTE | 2025-02-10 09:10 | A.OFFVIS_ITS ---
Intake Visit Reasons: 3m/discuss procedure Intake Note: Patient presents today for Green laser discussion PVR:76 mls Urology Medication:Finasteride Blood Thinner:none Antibiotic Allergies:none Signaling Project Engineer Required: Yes Accompanied by: Self / Same As Patient Allergies No Known Allergies Allergy (Verified 02/10/25 09:11) HPI Comments Details: Navneet is a pleasant male. He is seen for the following urologic conditions - lower urinary tract symptoms Discussed GreenLight laser prostatectomy Printed information provided He would like to move ahead Had minimal benefit from finasteride Initial primarily obstructing voiding symptoms Evaluation with Dr. Arvizu Office cystoscopy 11/30 shows trilobar enlargement Did not tolerate tamsulosin secondary to blood pressure issues Was interested in surgical management Has been on Proscar for three-month - US Retroperitoneam--10/24/24-Prostate ultrasound indicating enlarged prostate with an estimated volume of 107 mL Urinary Symptoms Review - Nocturia: 3 to 5 times per night - Low flow urinary stream, particularly when delaying urination - Discomfort if postponing urination Results - Urinalysis: Leukocytes negative, blood negative - Bladder scan PVR: 39 mL, within normal limits PFSH Medical History HTN (hypertension) Review of Systems Const Denies chills and Denies fever(s) Card Reports no additional complaints and Denies syncope Resp Denies cough GI Denies abdominal pain and Denies heartburn Reports as per HPI and Denies change in libido Neuro Denies syncope Psych Denies change in libido Endo Denies change in libido Physical Exam Const General: cooperative, healthy appearing, comfortable and no acute distress Orientation/consciousness: patient oriented x3 HEENT Face and sinus: Yes normal facial exam Mouth: moist mucous membranes Neck Neck: Yes normal visual inspection, Yes full ROM and Yes trachea midline Chest Chest palpation & inspection: normal inspection of the chest Resp Effort & Inspection: normal respiratory effort, able to speak in complete sentences and no respiratory distress GI Inspection: Yes normal to inspection Back/Spine/Pelvis Cervical Spine: normal cervical lordosis Thoracic/Lumbar Spine: thoracic and lumbar spine normal to inspection Skin General skin exam: no rashes or lesions noted Neuro General: patient oriented x3, gait normal, tone normal and moves all extremities Extrem General: Yes normal to inspection and Yes capillary refill normal Assessment & Plan Assessment & Plan (1) BPH loc w urin obs/LUTS: Code(s): N40.1 - Benign prostatic hyperplasia with lower urinary tract symptoms Category: Medical (2) Nocturia more than twice per night: Code(s): R35.1 - Nocturia Category: Medical Plan We discussed the nature of the decision and reasonable options for performing a prostate intervention. Interventions include TURP, GreenLight laser enucleation of the prostate, GreenLight laser ablation of the prostate, transurethral incision of the prostate, and I-Tend prostate procedure. Options such as medical therapy were discussed. The relative uncertainties and benefits related to each alternate procedure were adequately discussed. General surgical risks including, but not limited to, pain, bleeding, infection, myocardial infarction, pulmonary embolus, deep vein thrombosis and cerebrovascular accident which may result in further hospitalization were discussed. Full disclosure of the procedure as well as all major risks, benefits and complications were discussed including but not limited to damage to the urethra or bladder neck, recurrent BPH, retrograde ejaculation, bladder infection, urge, de serjio frequency, incomplete emptying, dysuria, remote chance of erectile dysfunction, epididymitis, and meatal stenosis. The success rate of the procedure was discussed. Success of the procedure in the short-term does not necessarily guarantee that long-term success will be maintained. Suitable follow up will need to be ma intained. The patient showed understanding of discussion. An opportunity was provided for questions to be answered and wishes to proceed with the following procedure. - GreenLight Laser Patient Instructions: This note is constructed using voice recognition software. While every effort has been made to ensure accuracy stained glass window designer errors may have been included. Imaging studies, laboratory and physical exam results were discussed and reviewed in detail. No major barriers to patient understanding were identified. An opportunity to ask questions regarding the treatment plan was provided. All questions were answered. The patient expressed understanding and agreement with the above treatment plan. The patient is aware they should contact our office by phone for worsening of their current condition or the appearance of new urologic symptoms. Compliance is encouraged with any medications and followup testing that is ordered. It is a privilege to participate in the urologic care of your patient. If you have any questions or concerns regarding treatment for the above conditions, or other urologic issues, please do not hesitate to contact me. The office telephone contact is [phone]. Sincerely, Dr Evan Allan MD, [facility] - Urology Compassionate Specialist Care for the Genitourinary System Coding Level of Care Code Est Pt Level 4 (76112) Complex EM visit Add On G2211 Diagnoses BPH loc w urin obs/LUTS N40.1 Nocturia more than twice per night R35.1
--- OUTSIDE RECORDS SUMMARY | 2025-02-10 09:21 | XMS_ITS | Clinical Summary ---
Author Organization [facility] Address [address] [place] [address] Care Team Providers Care Travel Attendants Name Role Phone Salima Romero PA-C Primary Care Provider [phone] Source Comments PLEASE NOTE, if this patient is a minor, it may be UNLAWFUL to discuss sensitive information that is contained in these records (such as FAMILY PLANNING, MENTAL HEALTH or SUBSTANCE ABUSE) with the minor patient's parent or other person without the patient's specific authorization.[facility] Social History Tobacco Use Types Packs/Day Years Used Date Smoking Tobacco: Never Assessed Sex and Gender Information Value Date Recorded Sex Assigned at Male 04/02/2024 8:17 AM PDT Legal Sex Male 8:16 AM PDT Gender Identity Male 04/02/2024 8:17 AM PDT Sexual Orientation Straight 04/02/2024 8: 17 AM PDT Plan of Treatment Upcoming Encounters Date Type Department Care Team (Late st Contact Info) Description 02/10/2025 11:40 AM EDT Office Visit [facility] [address] [place] [address] [phone] Salima Romero PA-C [facility] [place] [address] Katelin Barker [address] [place] [address] Health Maintenance Due Date Last Done Comments Diabetes Screening 1955 Hepatitis C Screening 1955 Lipid Screening 1955 Tobacco Screening 1955 Hypertension Screening (#1) 02/18/1972 Medicare Annual Wellness Visit 02/18/1972 CT Colonography 1999 Colonoscopy 1999 Colorectal Cancer Screening 1999 FIT/gFOBT 1999 Fecal DNA 1999 Flexible Sigmoidoscopy 1999 Abdominal Aortic Aneurysm Screening 2019 Falls Prevention 2019 Alcohol and Drug Screen 07/09/2024 Depression Annual Screen 07/09/2024 [id number] ( season) 2024 03/25/2024, 07/20/2023, 04/26/2022, Additional history exists Imm-Influenza (#1) 2025 03/25/2024, 0 03/26/2023, 04/26/2022, Additional history exists Imm-DTaP/Tdap/Td (2 - Td or Tdap) 05/10/2031 021 Imm-Pneumococcal 50+ Completed 05/10/2021, 04/23/20 15 Imm-Zoster, Recombinant Completed 03/25/2024, 04/06 Insurance [employer] MEDICARE Care Teams Travel Attendants Relationship Specialty Start Date End Date Salima Romero PA-C [address] [place] [id number] PCP - General Primary Care 02/09/25
--- OUTSIDE RECORDS SUMMARY | 2025-02-10 09:21 | XMS_ITS | Clinical Summary ---
Author Organization [facility] Address [address] [place] [phone] Phone Care Team Providers Care Contamination Consultant Name Role Phone Gerard Ribeiro MD Primary Care Provider [phone] Allergies No known active allergies Medications quinapriL (ACCUPRIL) 10 MG tablet Take 10 [...] Recorded Sex Assigned at Not on file Legal Sex Male 3:09 PM EDT Gender Identity Not on file Sexual Orientation Not on file Last Filed Vital Signs Vital Sign Reading Time Taken Comments Blood Pressure 108/56 12/03/2020 1:09 PM EDT Pulse 55 12/03/2020 1:09 PM EDT Temperature 36.2 C (97.2 F) 12/03/2020 12:22 PM EDT Respiratory Rate 18 12/03/2020 1:09 PM EDT [...] (2 of 2 - PPSV23) 04/23/2016 04/23/2015 COVID-19 VACCINE (3 - 2023-2 5 season) [...] age to complete this topic MENINGOCOCCAL VACCINES (B) Aged Out N o longer eligible based on patient's age to [...] 12/03/2020 12:55 PM EDT Carolina Morocho MD 12/03/2020 12:56 PM [facility] Navneet Frazier 1955 PROCEDURE: COLONOSCOPY SCREENING Procedure Date: 12/03/20 Prep Quality: Excellent Indication: Navneet Frazier is a 65 y.o. male who presents for screening colonoscopy, last colonoscopy was 10 years ago and it was normal. Anesthesia: Propofol per anesthesia Procedure: After discussion of risks, benefits, consequences and alternatives of the procedure and medication, and after reviewing the nursing evaluation, the patient was medicated as above. Digital rectal exam was performed and demonstrated no mass.The colonoscope was introduced and passed to the cecum , which was identified by inspection, palpation, and transillumination. The scope was then withdrawn. The cecum was photographed. Retroflexion of the endoscope in the rectum was performed. The patient tolerated the procedure well. Findings: The entire examined colonic mucosa was unremarkable. No evidence of colon polyps, tumors, or lesions were found. Retroflexed views demonstrated internal hemorrhoids. Impression: Normal colonoscopy to the cecum with the exception of internal hemorrhoids Recommendations/Plan: Repeat colonoscopy in 10 years time Carolina Morocho MD Gastroenterology & Hepatology [address] [place], [place] Office Office Carolina LIN GI PROCEDURE ORDERABLES Fi nal Result from Last 3 Months or Most Recently Relevant to Health Maintenance Insurance AET[employer] PPO MEDICARE REPLACEMENT AETNA O MEDICARE REPLACEMENT AETNA O MEDICARE REPLACEMENT AETNA O MEDICARE REPLACEMENT AETNA O MEDICARE REPLACEMENT AETNA O MEDICARE REPLACEMENT AETNA O MEDICARE REPLACEMENT AETNA PPO MEDICARE REPLACEMENT AETNA O MEDICARE REPLACEMENT Care Teams Contamination Consultant Relationship Specialty Start Date End Date Gerard Ribeiro MD [address] [place] [phone] PCP - General Family Medicine 02/16/20 Additional Source Comments The information contained in this document represents components of the legal health record. It is not the complete legal health record.[facility]
--- OUTSIDE RECORDS SUMMARY | 2025-02-10 09:21 | XMS_ITS | Patient Health Record ---
Author Organization [facility] Address [address] [address] Care Team Providers Care Armored Truck Driver Name Role Phone NO PCP, no pcp Primary Care Provider Elsa Ribeiro MD, 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 database analyst 2 kids 4 GC retired business database analyst-From [place] 2 kids 4 GC retired business database analyst 2 kids 4 GC retired business database analyst 2 kids 4 GC retired business database analyst 2 kids 4 GC retired business database analyst 2 kids 4 GC retired business database analyst-From [place] 2 kids 4 GC Problems Problem Type SNOMED Code ICD Code Onset Dates Problem Status W/U Status Risk Notes Problem Mixed hyperlipidemia (060284539) Mixed hyperlipidemia (E78.2) Active confirmed Problem Gastroesophageal reflux disease (disorder) (502177502) Chronic GERD (K21.9) Active confirmed Problem Essential hypertension (41900276) Hypertension, unspecified type (I10) Active confirmed Encounters Encounter Location Date Provider Diagnosis [facility] [address] [phone] 04/14/2024 Gerard Ribeiro MD Plan Of Treatment No Information Insurance Providers Payer Name Payer Address Payer Phone Subscriber Number Group Number Insured Name Patient Relationship to Insured Coverage Start Date Coverage End Date [employer] Medicare PPO/HMO [address] [place] [phone] [id number] Navneet Schroeder Self - patient is the insured Medicare Part B [address] [place] [phone] [id number] Navneet Schroeder Self - patient is the insured Medical (General) History Medical History History ICD Code Physical Exam last done on:06/16/2023 htn colonoscopy sched 12/03/20, due 11/2030 GERD hyperlipidemia Surgical History Surgery Date(Month/Year) hernia surgery
== END 2025-02-10 09:58 | disposition home or self-care (01) ==
LOC: HO.HUSH 09:03
PROVIDERS: Visit Provider Urology
DX: N40.1 Benign prostatic hyperplasia with lower urinary tract symptoms (principal); R35.1 Nocturia
CPT/HCPCS: 99214; G2211

== ENCOUNTER → 2025-02-10 09:02 | Outpatient (BNVA) | payer MEDICARE, SELFPAY | PROVIDERS: Visit Provider Urology | DX: N40.1 Benign prostatic hyperplasia with lower urinary tract symptoms (principal); R35.1 Nocturia | CPT/HCPCS: 81003; 99212 ==

== ENCOUNTER 2025-04-27 06:13 | Day surgery (SDC) | payer MEDICARE, SELFPAY ==
--- OUTSIDE RECORDS SUMMARY | 2025-02-23 12:56 | XMS_ITS | Encounter Summary ---
Author Organization [facility] Address [address] [place] [phone] Phone Care Team Providers Care Bank Appraiser Name Role Phone Gerard Ribeiro MD Primary Care Provider [phone] Encounter Details Date Type Department Care Team (Late st Contact Info) Description 12/03/2020 Procedure Pass [facility] - Endoscopy - [facility] [address] [place] [phone] Social History Tobacco Use Types Packs/Day Years [...] on filedocumented in this encounter Care Teams Bank Appraiser Relationship Specialty Start Date End Date Gerard Ribeiro MD [address] [address] PCP - General Family Medicine 02/16/20 documented as of this encounter Additional Source Comments The information contained in this document represents components of the legal health record. It is not the complete legal health record.[facility]
--- OUTSIDE RECORDS SUMMARY | 2025-02-23 12:57 | XMS_ITS | Clinical Summary ---
Author Organization [facility] Address [address] [place] [address] Care Team Providers Care Spooler Operator Automatic Name Role Phone Salima Romero PA-C Primary Care Provider [phone] Source Comments PLEASE NOTE, if this patient is a minor, it may be UNLAWFUL to discuss sensitive information that is contained in these records (such as FAMILY PLANNING, MENTAL HEALTH or SUBSTANCE ABUSE) with the minor patient's parent or other person without the patient's specific authorization.[facility] Allergies No known active allergies Medications finasteride (PROSCAR) 5 mg tablet Take 5 mg by mouth once daily. 5 Active atorvastatin (LIPITOR) 20 mg tabletIndications :History of high cholesterol Take 1 Tablet by mouth once daily. 30 Tablet 2 5 Active lisinopriL 10 mg tabletIndications :Essential (primary) hypertension Take 1 Tablet by mouth once daily. 30 Tablet 2 5 Active omeprazole (PRILOSEC) 20 mg tabletIndications :Gastroesophageal reflux disease, unspecified whether esophagitis present Take 20 mg by mouth daily. 30 Tablet 2 5 Active atorvastatin (LIPITOR) 20 mg tablet Take 20 mg by mouth once daily. 5 02/11/20 25 Discontinu ed(Reorder (E-Cancel Not Sent)) lisinopriL 10 mg tablet Take 10 mg by mouth once daily. 5 02/11/20 25 Discontinu ed(Reorder (E-Cancel Not Sent)) omeprazole (PRILOSEC) 20 mg tablet Take 20 mg by mouth daily. 02/11/20 25 Discontinu ed(Reorder (E-Cancel Not Sent)) Active Problems Problem Noted Date Diagnosed Date BPH (benign prostatic hyperplasia) Overview (02/13/2025): 11/13/2024 [place] [facility] [place] Dx: BPH loc w urin obs/LUTS; Nocturia - start Finasteride 5 mg x 3 months prior to green light laser with Dr. Allan Essential (primary) hypertension GERD (gastroesophageal reflux disease) Encounters Date Type Department Care Team Description 02/12/2025 Results Follow-Up [facility] [address] [place] [id number] Salima Romero PA-C 02/10/2025 11:40 AM EDT Office Visit [facility] [address] [place] [address] Salima Romero PA-C Diaz, Wilma from Last 3 Months Family History Medical History Relation Name Comments Heart attack Brother 1 No Known Problems Brother 2 Heart attack Father No Known Problems Maternal Grandfather No Known Problems Maternal Grandmother Hepatitis Mother No Known Problems Paternal Grandfather No Known Problems Paternal Grandmother Heart attack Sister 1 Hypertension Sister 2 Asthma Sister 3 No Known Problems Son 1 No Known Problems Son 2 Relation Name Status Comments Brother 1 Brother 2 Unknown Father Maternal Grandfather Maternal Grandmother Mother Paternal Grandfather Paternal Grandmother Sister 1 Sister 2 Alive Sister 3 Alive Son 1 Alive Son 2 Alive Social History Tobacco Use Types Packs/Day Years Used Date Smoking Tobacco: Never Smokeless Tobacco: Never Tobacco Cessation:Counseling Given: Not Answered Alcohol Use Standard Drinks/Week Comments Not Currently 0 (1 standard drink = 0.6 oz pur e alcohol) Sex and Gender Information Value Date Recorded Sex Assigned at Male 04/02/2024 8:17 AM PDT Legal Sex Male 8:16 AM PDT Gender Identity Male 04/02/2024 8:17 AM PDT Sexual Orientation Straight 04/02/2024 8: 17 AM PDT Last Filed Vital Signs Vital Sign Reading Time Taken Comments Blood Pressure 110/67 02/10/2025 11:14 AM EDT Pulse 56 02/10/2025 11:14 AM EDT Temperature 36.7 C (98.1 F) 02/10/2025 11:14 AM EDT Respiratory Rate 16 02/10/2025 11:14 AM EDT Oxygen Saturation 98% 02/10/2025 11:14 AM EDT Inhaled Oxygen Concentration - - Weight 71.7 kg (158 lb) 02/10/2025 11:14 AM EDT Height 177.8 cm (5' 10 ) 02/10/2025 11:14 AM EDT Body Mass Index 22.67 02/10/2025 11:14 AM EDT Plan of Treatment Upcoming Encounters Date Type Department Care Team (Late st Contact Info) Description 02/24/2025 2:00 PM EDT Office Visit [facility] [address] [place] [address] Salima Romero PA-C [address] [place] [address] Katheryn Dallas [address] [place] [address] Health Maintenance Due Date Last Done Comments CT Colonography 1999 Colonoscopy 1999 Colorectal Cancer Screening 1999 FIT/gFOBT 1999 Fecal DNA 1999 Flexible Sigmoidoscopy 1999 Imm-Influenza (#1) 2025 03/25/2024, 0 03/26/2023, 04/26/2022, Additional history exists [id number] ( season) 2025 03/25/2024, 07/20/2023, 04/26/2022, Additional history exists Postponed from 09/22/2024 (Patient postponement) Falls Prevention 02/10/2026 02/10/2025 Medicare Annual Wellness Visit 02/10/2026 02/10/2025 Tobacco Screening 02/10/2026 02/10/2025 Lipid Screening 02/11/2026 02/11/2025 Imm-DTaP/Tdap/Td (2 - Td or Tdap) 05/10/2031 05/10/2021 Imm-Pneumococcal 50+ Completed 05/10/2021, 04/23/20 15 Imm-Zoster, Recombinant Completed 03/25/2024, 04/06 Alcohol and Drug Screen Completed 02/10/2025 Depression Annual Screen Completed 02/10/2025 Hepatitis C Screening Completed 02/11/2025 Procedures Procedure Name Priority Date/Time Associated Diagnosis Comments IMAGING SCANNED DOCUMENT 02/13/2025 3:00 AM EDT HEPATITIS C AB W/RFLX HCV RNA, QT, RT PCR Routine 02/11/2025 9:38 AM EDT Annual physical exam TSH W/RFLX FREE T4 Routine 02/11/2025 9: 38 AM EDT Annual physical exam LIPID PANEL Routine 02/11/2025 9:38 AM EDT Annual physical exam COMPREHENSIVE METABOLIC PANEL Routine 02/11/2025 9:38 AM EDT Annual physical exam BLOOD COUNT COMPLETE AUTO&AUTO DIFRNTL WBC Routine 02/11/2025 9:38 AM EDT Annual physical exam REFERRAL SCANNED DOCUMENT 02/10/2025 3:00 AM EDT from Last 3 Months Results * IMAGING SCANNED DOCUMENT (02/13/2025 3:00 AM EDT) 02/13/2025 3:00 AM EDT us Salima Romero PA-C SCAN IMAGING Final Resul t * HEPATITIS C AB W/RFLX HCV RNA, QT, RT PCR Routine (02/11/2025 9:38 AM EDT) HEPATITIS C ANTIBODY NON-REACT LEILANI NON-REACT LEILANI 02/12/2025 6:24 AM EDT [employer] [facility] Blood Blood / Unknown 02/11/2025 9 :38 AM EDT 02/12/2025 3:56 AM EDT Narrative [employer] [facility] - 02/12/2025 6:29 AM EDT . HCV antibody was non-reactive. There is no laboratory evidence of HCV infection. . In most cases, no further action is required. However, if recent HCV exposure is suspected, a test for HCV RNA (test code 98928) is suggested. . For additional information please refer to http://education.Agrican/faq/QWI25t0 (This link is being provided for informational/ educational purposes only.) . Salima Romero PA-C LAB - BLOOD DRAW Final Resu lt Performing Organization Address [facility]/ZIP Co de Phone [place] [address], [employer] [address] [address] * TSH W/RFLX FREE T4 Routine (02/11/2025 9:38 AM EDT) Pathologist [facility] TSH W/REFLEX TO FT4 1.06 0.40 - 4.50 mIU/L 02/12/2025 6:19 AM EDT [employer] [facility] Blood Blood / Unknown 02/11/2025 9 :38 AM EDT 02/12/2025 3:56 AM EDT Salima Romero PA-C LAB - BLOOD DRAW Final Resu lt Performing Organization Address [facility]/ZIP Co de Phone Number [place] [address], [employer] [address] [address] * BLOOD COUNT COMPLETE AUTO&AUT[employer] DIFRNTL WBC Routine (02/11/2025 9:38 AM EDT) WHITE BLOOD CELL COUNT 6.3 3.8 - 10.8 Thousand/ uL 02/12/2025 4:13 AM EDT [employer] [facility] RED BLOOD CELL COUNT 4.57 4.20 - 5.80 Million/u L 02/12/2025 4:13 AM EDT [employer] [facility] HEMOGLOBIN 14.1 13.2 - 17.1 g/dL 02/12/2025 4:13 AM EDT [employer] [facility] HEMATOCRIT 43.4 38.5 - 50.0 % 02/12/2025 4:13 AM EDT [employer] [facility] MCV 95.0 80.0 - 100.0 fL 02/12/2025 4:13 AM [employer] [facility] MCH 30.9 27.0 - 33.0 pg 02/12/2025 4:13 AM [employer] [facility] MCHC 32.5 32.0 - 36.0 g/dL 02/12/2025 4:13 AM [employer] [facility] RDW 12.8 11.0 - 15.0 % 02/12/2025 4:13 AM [employer] [facility] PLATELET COUNT 361 140 - 400 Thousand/ uL 02/12/2025 4:13 AM [employer] [facility] MPV 9.3 7.5 - 12.5 fL 02/12/2025 4:13 AM [employer] [facility] ABSOLUTE NEUTROPHILS 3,112 1,500 - 7,800 cells/uL 02/12/2025 4:13 AM [employer] [facility] ABSOLUTE LYMPHOCYTES 2,564 850 - 3,900 cells/uL 02/12/2025 4:13 AM [employer] [facility] ABSOLUTE MONOCYTES 454 200 - 950 cells/uL 02/12/2025 4:13 AM [employer] [facility] ABSOLUTE EOSINOPHILS 139 15 - 500 cells/uL 02/12/2025 4:13 AM [employer] [facility] ABSOLUTE BASOPHILS 32 0 - 200 cells/uL 02/12/2025 4:13 AM [employer] [facility] NEUTROPHILS PCT 49.4 % 4:13 AM [employer] [facility] LYMPHOCYTES 40.7 % 02/12/2025 4:13 AM [employer] [facility] MONOCYTES 7.2 % 02/12/2025 4:13 AM [employer] [facility] EOSINOPHILS 2.2 % 02/12/2025 4:13 AM [employer] [facility] BASOPHILS 0.5 % 02/12/2025 4:13 AM [employer] [facility] Blood Blood / Unknown 02/11/2025 9 :38 AM EDT 02/12/2025 2:39 AM EDT [employer] [facility] - 02/12/2025 4:36 AM EDT For adults, a slight decrease in the calculated MCHC value (in the range of 30 to 32 g/dL) is most likely not clinically significant; however, it should be interpreted with caution in correlation with other red cell parameters and the patient's clinical condition. Salima Romero PA-C LAB - BLOOD DRAW Final Resu lt [employer] [address] [address], [employer] [place] [employer] [address] [place] [address] * LIPID PANEL Routine (02/11/2025 9:38 AM EDT) CHOLESTEROL, TOTAL 111 <200 mg/dL 02/12/2025 5:19 AM EDT [employer] [facility] HDL CHOLESTEROL 45 > OR = 40 mg/dL 02/12/2025 5:19 AM EDT [email or web address] TRIGLYCERIDES 85 <150 mg/dL 02/12/2025 5:19 AM EDT [facility] LDL-CHOLESTEROL 49 mg/dL (calc) 02/12/2025 5:19 AM EDT [email or web address] CHOL/HDLC RATIO 2.5 <5.0 (calc) 02/12/2025 5:19 AM EDT [facility] NON-HDL CHOLESTEROL 66 <130 mg/dL (calc) 02/12/2025 5:19 AM EDT [email or web address] Blood Blood / Unknown 02/11/2025 9 :38 AM EDT 02/12/2025 4:07 AM EDT Narrative [employer] - 02/12/2025 5:26 AM EDT Reference range: <100 . Desirable range <100 mg/dL for primary prevention; <70 mg/dL for patients with CHD or diabetic patients with > or = 2 CHD risk factors. . LDL-C is now calculated using the Jhoan-Margaret calculation, which is a validated novel method providing better accuracy than the Friedewald equation in the estimation of LDL-C. Jhoan SS et al. UQANG. 2013;310(19): 6253-8587 (http://education.AudioBoo.Bioheart/faq/LYK807) For patients with diabetes plus 1 major ASCVD risk factor, treating to a non-HDL-C goal of <100 mg/dL (LDL-C of <70 mg/dL) is considered a therapeutic option. Salima Romero PA-C LAB - BLOOD DRAW Final Resu lt [employer] [facility] [address] [address], [employer] [facility] [address] [place] [address] * COMPREHENSIVE METABOLIC PANEL Routine (02/11/2025 9:38 AM EDT) GLUCOSE 98 65 - 99 mg/dL 02/12/2025 5:19 AM EDT [facility] UREA NITROGEN (BUN) 16 7 - 25 mg/dL 02/12/2025 5:19 AM [employer] [facility] CREATININE (blood) 0.82 0.70 - 1.28 mg/dL 02/12/2025 5:19 AM EDT [facility] EGFR 94 > OR = 60 mL/min/1. 73m2 02/12/2025 5:19 AM [employer] [facility] BUN/CREATININE RATIO SEE NOTE: 6 - 22 (calc) 02/12/2025 5:19 AM [employer] [facility] SODIUM 140 135 - 146 mmol/L 02/12/2025 5:19 AM [employer] [facility] POTASSIUM 4.3 3.5 - 5.3 mmol/L 02/12/2025 5:19 AM [employer] [facility] CHLORIDE 103 98 - 110 mmol/L 02/12/2025 5:19 AM [employer] [facility] CARBON DIOXIDE 32 20 - 32 mmol/L 02/12/2025 5:19 AM [employer] [facility] CALCIUM 9.6 8.6 - 10.3 mg/dL 02/12/2025 5:19 AM [employer] [facility] PROTEIN, TOTAL 6.9 6.1 - 8.1 g/dL 02/12/2025 5:19 AM [employer] [facility] ALBUMIN 4.5 3.6 - 5.1 g/dL 02/12/2025 5:19 AM [employer] [facility] GLOBULIN 2.4 1.9 - 3.7 g/dL (calc) 02/12/2025 5:19 AM [employer] [facility] ALBUMIN/GLOBULI N RATIO 1.9 1.0 - 2.5 (calc) 02/12/2025 5:19 AM [employer] [facility] BILIRUBIN, TOTAL 0.5 0.2 - 1.2 mg/dL 02/12/2025 5:19 AM EDT [facility] ALKALINE PHOSPHATASE 73 35 - 144 U/L 02/12/2025 5:19 AM EDT [employer] [facility] AST 14 10 - 35 U/L 02/12/2025 5:19 AM EDT [employer] [facility] ALT 13 9 - 46 U/L 02/12/2025 5:19 AM EDT [employer] [facility] Blood Blood / Unknown 02/11/2025 9 :38 AM EDT 02/12/2025 4:07 AM EDT Narrative [employer] [facility] - 02/12/2025 5:26 AM EDT . Fasting reference interval . Not Reported: BUN and Creatinine are within reference range. . Salima Romero PA-C LAB - BLOOD DRAW Final Resu lt [employer] [address] [place] [address], [employer] [address] [address] * REFERRAL SCANNED DOCUMENT (02/10/2025 3:00 AM EDT) 02/10/2025 3:00 AM EDT Clem Allan RN SCAN REFERRAL Final Result from Last 3 Months Insurance [employer] MEDICARE Care Teams Spooler Operator Automatic Relationship Specialty Start Date End Date Salima Romero PA-C [facility] [place] [address] PCP - General Primary Care 02/09/25
--- OUTSIDE RECORDS SUMMARY | 2025-02-23 12:57 | XMS_ITS | Patient Health Record ---
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 [place] 2 kids 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 [place] 2 kids 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 [place] 2 kids 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 4 GC Problems Problem Type SNOMED Code ICD Code Onset Dates Problem Status W/U Status Risk Notes Problem Mixed hyperlipidemia (599383658) Mixed hyperlipidemia (E78.2) Active confirmed Problem Gastroesophageal reflux disease (disorder) (935447416) Chronic GERD (K21.9) Active confirmed Problem Essential hypertension (67302900) Hypertension, unspecified type (I10) Active confirmed Encounters Encounter Location Date Provider Diagnosis [facility] [address] [address] 04/14/2024 Gerard Ribeiro MD Plan Of Treatment No Information Insurance Providers Payer Name Payer Address Payer Phone Subscriber Number Group Number Insured Name Patient Relationship to Insured Coverage Start Date Coverage End Date [employer] Medicare PPO/HMO [address] [place] [phone] [id number] Navneet Schroeder Self - patient is the insured Medicare Part B [address] [place] [phone] [id number] Navneet Schroeder Self - patient is the insured Medical (General) History Medical History History ICD Code Physical Exam last done on:06/16/2023 htn colonoscopy sched 12/03/20, due 11/2030 GERD hyperlipidemia Surgical History Surgery Date(Month/Year) hernia surgery
[2025-04-23 08:02] VITALS: BMI 23.0
--- NOTE | 2025-04-23 10:14 | HO.ANESPROP2 ---
Documented by User: Priyanka Gonzáles NP 04/23/25 10:14 HPI - Anesthesia Eval Consult details Narrative: 70yo M for Laser Ablation Prostate w/Green Light PMFSH Active Problems Active Problems: All Active Problems Nocturia more than twice per night (Acute) BPH loc w urin obs/LUTS (Acute) Past Medical History Medical History BPH (benign prostatic hyperplasia) GERD (gastroesophageal reflux disease) Elevated cholesterol Nocturia HTN (hypertension) Surgical History Surgical History Hx of appendectomy Hx of hernia repair H/O colonoscopy Social History Social History Are you a primary career development associate to a significant other at home: No Do you presently have visiting nurse or other home services: No Patient Tobacco Use Status: Never used Tobacco Use of substances other than those prescribed or required for medical reasons: No Have you been hit, kicked, punched, or otherwise hurt by someone within the past year? If so, by whom?: No Spiritual Healthcare Practices: no Latter Day Healthcare Practices: no Cultural Healthcare Practices: no Are you DNR?: No Advance Directives: No (son is primary contact) Advance Directives on File: No Poor oral hygiene: No Meds Allergies Allergy/AdvReac Type Severity Reaction Status Date / Time No Known Allergies Allergy Verified 02/10/25 09:11 Home Medications ?Medication ?Instructions ?Recorded ?Confirmed ?Last Taken ?Type omeprazole 40 mg capsule,delayed 40 mg PO DAILY 09/22/24 04/23/25 Unknown History release atorvastatin 20 mg tablet 20 mg PO DAILY 02/10/25 04/23/25 Unknown History lisinopril 20 mg tablet 20 mg PO DAILY 02/10/25 04/23/25 Unknown History Exam Height,Weight and Vital Signs: Height 5 ft 10 in Weight 72.575 kg Assessment and Plan Assessment Anesthesia Assessment: Chart Reviewed Documented by User: Miguelina Mendoza MD 04/27/25 07:31 [facility] Past Medical History Medical History BPH (benign prostatic hyperplasia) GERD (gastroesophageal reflux disease) Elevated cholesterol Nocturia HTN (hypertension) Family History Family history of problems with anesthesia: No Surgical History Surgical History Hx of appendectomy Hx of hernia repair H/O colonoscopy History of Problems with Anesthesia: No Social History Social History Are you a primary career development associate to a significant other at home: No Do you presently have visiting nurse or other home services: No Patient Tobacco Use Status: Never used Tobacco Use of substances other than those prescribed or required for medical reasons: No Have you been hit, kicked, punched, or otherwise hurt by someone within the past year? If so, by whom?: No Spiritual Healthcare Practices: no Latter Day Healthcare Practices: no Cultural Healthcare Practices: no Are you DNR?: No Advance Directives: No (son is primary contact) Advance Directives on File: No Poor oral hygiene: No Meds Allergies Allergy/AdvReac Type Severity Reaction Status Date / Time No Known Allergies Allergy Verified 02/10/25 09:11 Home Medications ?Medication ?Instructions ?Recorded ?Confirmed ?Last Taken ?Type omeprazole 40 mg capsule,delayed 40 mg PO DAILY 09/22/24 04/23/25 Unknown History release atorvastatin 20 mg tablet 20 mg PO DAILY 02/10/25 04/23/25 Unknown History lisinopril 20 mg tablet 20 mg PO DAILY 02/10/25 04/23/25 Unknown History Exam Airway Mallampati Class: II TM Dist: >3cm Neck ROM: Limited Heart: rrr Lungs: cta Assessment and Plan Assessment Anesthesia Assessment: Anesthesia Plan Discussed Final Anesthetic Review Family History of Problems with Anesthesia: No History of Problems with Anesthesia: No NPO: Yes ASA Class: II Final Preanesthetic Review: No Changes in Pt Med Stat, Meds/Allgs Chart Reviewed, Consent Obtained/Reviewed and Anes Risks/Benef Reviewed Patient Risk: Low Procedure Risk: Intermediate Anesthetic Plan Anesthetic Plan: GA Disposition: Standard PACU
[2025-04-27] VITALS (7 sets, daily range): BP systolic 135–151; BP diastolic 78–85; PULSE 51–59; RESP 12–16; TEMP 36.1–36.5; O2SAT 96–100
[2025-04-27] MEDS: Lactated Ringers 1,000 ML 100 ML IVCONT (06:49)
--- NOTE | 2025-04-27 07:42 | MHC.SHP ---
Pre-Procedural Eval Section A - 24 Hr Update-Section A only Date of Service: 04/27/25 The patient is an INPATIENT: No Changes since office visit: No Cold of Flu in the past 2 weeks, No New Medical Problems, No Changes in Medication and No Patient answered all questions The patient has been examined within 24 hours of the surgical procedure. The History & Physical has been completed within 30 days and I have reviewed it.: No Section B - Complete if H&P > 30 days Chief Complaint: Benign prostatic hyperplasia with lower urinary Details of Present Illness: 100 cc trilobar hypertrophy Relevant Family History (Specify if Yes): No Relevant Social History: None Present Medications: see Short Stay Collaborative assessment Medical History: No relevant PMH History of Previous Operations: No relevant previous surgery Allergies: Allergies Allergy/AdvReac Type Severity Reaction Status Date / Time No Known Allergies Allergy Verified 02/10/25 09:11 Review of Systems Sugical H&P ROS: Negative: Constitution, Cardiovascular, Respiratory, Neurological, Psychiatric, Hem-Onc, Allergic/Immunologic, Gastrointestinal, Genitourinary, Musculoskeletal, Integumentary, Endocrine and Eyes/Ears/Nose/Throat Exam Surgical H&P Exam: Normal: HEENT, Normal: Heart, Normal: Lungs, Normal: Extremities, Normal: Abdomen, Normal: Skin and Normal: Neurological Plan Diagnosis/Plan: Unchanged I have reviewed the history and physical and performed a pertinent physical examination on my patient. No changes have occurred unless specified. Time Spent With Patient Time: Total time managing care of this patient today ____ minutes.
--- NOTE | 2025-04-27 08:48 | P.OP_ITS ---
Operative Note Operative Note Date of Service: 04/27/25 Narrative: PreOperative Diagnosis: Bladder outlet obstruction Post Operative Diagnosis: Bladder outlet obstruction Procedure: GreenLight Laser Enucleation of the prostate CPT 45894 Surgeon: Dr Evan Allan Anesthesia: General History of bladder outlet obstruction. Treated with alpha-quentin and other medications. Still with symptoms. On cystoscopy in office has trilobar prostate. Imaging shows 100 cc prostate on ultrasound. Risks and benefits have been discussed. Focus was placed on development of retrograde ejaculation which is a normal part of this procedure. Published revision rates are approximately 30-50% at 8-10 years following the procedure. Procedure: After informed consent was verified the patient was brought to the operating room and placed in a supine position. Anesthesia was administered per protocol. Patient was placed in modified dorsal lithotomy position and prepped and draped in a sterile fashion. Safety pause time-out was confirmed. Antibiotics have been given. A Twenty-four Nepalese laser cystoscope was inserted per urethra. No abnormalities were found of the anterior and bulbar urethra. The prostatic urethra shows trilobar hypertrophy. The bladder was examined and both ureteric orifices were seen in their normal positions away from the area of interest. Bladder trabeculation grade 1/2 with some injected mucosa. A GreenLight laser with attached pressure bag Normal Saline cooling irrigation was used. At initial setting of 80 hill incisions were made at the 5 and 7 o'clock position. The incisions were taken down from the bladder neck down to the area just proximal of the veru. These were gradually deepened in order to define the lateral aspects of the median lobe area and separate the lateral lobe areas from the median lobe.. The deep boundary of enucleation was defined by the prostate surgical capsule. Once clearly defined the grooves were extended in the lateral directions in order to create a deep groove and begin to undermined the lateral lobe areas.. The median lobe was then ablated and enucleated tissue released into the bladder with the laser power increased to 120 W. this was accomplished by approaching the median lobe from each lateral incision and working from lateral to medial. Medium sized lobe overall. Once the median lobe area had been cleared, attention was directed to the lateral lobes. Starting with the patient's left lateral lobe. First the 05:00 o'clock groove was further developed. This was moved in the lateral direction to undermine the tissue on the lateral side running from the bladder neck to the prostate apex. The ureteric orifice was used to guide incisions. The laser fiber was placed at the 1 o'clock position and a secondary groove was developed down to the level of prostatic capsule. The creation of a second deep groove defined a segment of intervening tissue similar to a slice of orange. At the apex of the prostate the laser was used to vertically link the two grooves releasing the intervening tissue and creating a segment of tissue. This tissue was then removed with a combination of enucleation and ablation working from the apex toward the bladder neck. A similar procedure was repeated on the patient's right-hand side. The only differences being the position of the lateral groove at the 7 o'clock position and the secondary groove at the 11 o'clock position, Otherwise the procedure was developed in a mirror fashion. Laser power of 120-140 w After the majority of tissue had been debulked remnant tissue was ablated with the side fire laser and the curve of the prostate followed up each side wall clearly defining the anterior remnant strip that remained between the 11 and 1 o'clock positions. At completion debris and pieces of prostate were removed from the bladder with irrigation. Both ureteric orifices were reviewed again in shown to be patent in away from any areas of energy damage. The apical area was reviewed and any stray mucosal ooze was controlled. A 22 Nepalese 30 cc balloon Alamo catheter was placed into the bladder using a flexible stylet. Clear efflux was obtained upon irrigation with a Antione piston syringe. 30 cc was placed in the balloon and gentle traction was placed. A snap was used to hold tension on the catheter to control bleeding during patient moved and transported. A drainage bag was placed. A belladonna and opiate suppository was placed in order to assist in postp rocedure pain management. Once transportation is complete to the PACU the snap will be removed. The patient tolerated the procedure well, he was extubated in the operating and transferred in a stable condition to the recovery area. Total Power kJ Lasing time 16:30 Pathology: Prostate tissue Drains: Alamo catheter
== END 2025-04-27 10:18 | disposition home or self-care (01) ==
PROVIDERS: PCP Student in an Organized Health Care Education/Training Program; Visit Provider Urology
PROC: (CPT 52648; principal; 2025-04-27 07:30)
DX: N40.1 Benign prostatic hyperplasia with lower urinary tract symptoms (principal); N13.8 Other obstructive and reflux uropathy; R35.1 Nocturia; R39.12 Poor urinary stream; N32.89 Other specified disorders of bladder; I10 Essential (primary) hypertension; Z79.899 Other long term (current) drug therapy
CPT/HCPCS: 52649; 88305; J1100; J1956; J2003; J2250; J2405; J2704; J3010

== ENCOUNTER → 2025-04-27 06:13 | Outpatient (BNV) | payer MEDICARE, SELFPAY | PROVIDERS: PCP Student in an Organized Health Care Education/Training Program; Visit Provider Urology | DX: N32.0 Bladder-neck obstruction (principal) | CPT/HCPCS: 52649 ==

== ENCOUNTER → 2025-04-29 09:02 | Outpatient (BNVA) | payer MEDICARE, SELFPAY | PROVIDERS: Visit Provider Urology | DX: N40.1 Benign prostatic hyperplasia with lower urinary tract symptoms (principal) | CPT/HCPCS: 51700; 51798 ==

== ENCOUNTER 2025-05-15 09:27 | Outpatient (REF) | payer MEDICARE, SELFPAY ==
--- OUTSIDE RECORDS SUMMARY | 2025-05-15 10:44 | XMS_ITS | Patient Health Record ---
Author Organization [facility] Address [address] [address] Care Team Providers Care Tyre Finisher And Examiner Name Role Phone NO PCP, no pcp Primary Care Provider Gerard Salazar Unavailable [phone] Allergies No Known Allergies Reason For Referral No Information Medications Medication SIG (Take, Route, Frequency, Duration) Notes Start Date End Date Status Lisinopril 20 MG Tablet TAKE 1 TABLET BY MOUTH EVERY DAY; Duration: 90 days Active Atorvastatin Calcium 20 MG Tablet TAKE 1 TABLET BY MOUTH EVERY DAY; Duration: 90 Active Esomeprazole Magnesium 20 MG Capsule Delayed Release 1 capsule Orally qd Active Immunizations Vaccine [...] History Observation Description Sex Assigned At Unknown Social History Tobacco Use: Social Info Question Answer Notes cigarettes Are you a nonsmoker Additional Details Category Social Info Options Details Drugs/Alcohol: Drugs no Alcohol Screen yes Occasionally Fall Risk Prevention Have you fallen in the last year? No Are you unsteady when standing or walking? No Are you afraid of falling? 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 [place] 2 kids 4 GC Problems Problem Type SNOMED Code ICD Code Onset Dates Problem Status W/U Status Risk Notes Problem Mixed hyperlipidemia (982043462) Mixed hyperlipidemia (E78.2) Active confirmed Problem Gastroesophageal reflux disease (disorder) (130829103) Chronic GERD (K21.9) Active confirmed Problem Essential hypertension (90139560) Hypertension, unspecified type (I10) Active confirmed Plan Of Treatment No Information Insurance Providers Payer Name Payer Address Payer Phone Subscriber Number Group Number Insured Name Patient Relationship to Insured Coverage Start Date Coverage End Date [employer] Medicare PPO/HMO [address] [place] [address] [id number] Navneet Schroeder Self - patient is the insured Medicare Part B [address] [place] [phone] [id number] Navneet Schroeder Self - patient is the insured Medical (General) History Medical History History ICD Code Physical Exam last done on:06/16/2023 htn colonoscopy sched 12/03/20, due 11/2030 GERD hyperlipidemia Surgical History Surgery Date(Month/Year) hernia surgery
--- OUTSIDE RECORDS SUMMARY | 2025-05-15 10:44 | XMS_ITS | Clinical Summary ---
Author Organization [facility] Address [address] [place] [address] Care Team Providers Care Ham Facer Name Role Phone Salima Romero PA-C Primary Care Provider [phone] Source Comments PLEASE NOTE, if this patient [...] mouth daily. 30 Tablet 2 5 Active omeprazole (PRILOSEC) 20 mg tabletIndications :Gastroesophageal reflux disease, unspecified whether esophagitis present Take 20 mg by mouth daily. 30 Tablet 2 5 05/07/20 25 Discontinu ed(Reorder (E-Cancel Not Sent)) Active Problems Problem Noted Date Diagnosed Date H/O complete eye exam 03/13/2025 Overview (03/13/2025): 03/05/2025 - ophthalmology - [facility] - Cataract OU - f/u 4-6 weeks; Glaucoma suspect, Low Risk OU; Dermatochalasis Bilateral UL; Refractive Error OU - pt to f/u with Dr. Mcmullen 4-6 weeks - Intermediate exam Hepatic steatosis 02/24/2025 Overview (02/24/2025): 05/15/2024 - RUQ US - Impression: - Echogenic liver likely representing hepatic steatosis - No definitive gallstones or evidence of acute cholecystitis - Possible 0.3 cm sessile gallbladder Polyp. Low Risk Category. Recommend no f/u per Kayleen H/O colonoscopy 02/24/2025 Overview (02/24/2025): 12/03/2020 - Colonoscopy - [facility] - Endoscopy - [address] [address] Findings: The entire examined colonic mucosa was unremarkable. No evidence of colon polyps, tumors, or lesions were found. Retroflexed views demonstrated internal hemorrhoids. Impression: Normal colonoscopy to the cecum with the exception of internal hemorrhoids Recommendations/Plan: Repeat colonoscopy in 10 years time BPH (benign prostatic hyperplasia) Overview (02/13/2025): 11/13/2024 - [facility] - Dx: BPH loc w urin obs/LUTS; Nocturia - start Finasteride 5 mg x 3 months prior to green light laser with Dr. Allan Essential (primary) hypertension GERD (gastroesophageal reflux disease) Encounters Date Type Department Care Team Description 02/24/2025 2:00 PM EDT Office Visit [facility] [address] [place] [address] Salima Romero PA-C Lopez, Iris 02/12/2025 Results Follow-Up [facility] [address] [place] [id number] Salima Romero PA-C from Last 3 Months Family History Medical [...] Sign Reading Time Taken Comments Blood Pressure 114/73 02/24/2025 1:56 PM EDT Pulse 57 02/24/2025 1:56 PM EDT Temperature 36.8 C (98.2 F) 02/24/2025 1:56 PM EDT Respiratory Rate 16 02/24/2025 1:56 PM EDT Oxygen Saturation 97% 02/24/2025 1:56 PM EDT Inhaled Oxygen Concentration - - Weight 70.8 kg (156 lb) 02/24/2025 1:56 PM EDT Height 177.8 cm (5' 10 ) 02/24/2025 1:56 PM EDT Body Mass Index 22.38 02/24/2025 1:56 PM EDT Plan of Treatment Health Maintenance Due Date Last Done Comments CT Colonography 1999 FIT/gFOBT 1999 Fecal DNA 1999 Flexible Sigmoidoscopy 1999 [id number] ( season) 2025 03/25/2024, 07/20/2023, 04/26/2022, Additional history exists Imm-Influenza (#1) 2025 03/25/2024, 0 03/26/2023, 04/26/2022, Additional history exists Falls Prevention 02/10/2026 02/10/2025 Medicare Annual Wellness Visit 02/10/2026 02/10/2025 Lipid Screening 02/11/2026 02/11/2025 Tobacco Screening 02/24/2026 02/24/2025 Colonoscopy 12/03/2030 12/03/2020 Colorectal Cancer Screening 12/03/2030 Imm-DTaP/Tdap/Td (2 - Td or Tdap) 05/10/2031 021 Imm-Pneumococcal 50+ Completed 05/10/2021, 04/23/20 15 Imm-Zoster, Recombinant Completed 03/25/2024, 04/06 Alcohol and Drug Screen Completed 02/10/2025 Depression Annual Screen Completed 02/10/2025 Hepatitis C Screening Completed 02/11/2025 Procedures Procedure Name Priority Date/Time Associated Diagnosis Comments REFERRAL TO OPHTHALMOLOGY Routine 03/05/2025 3:00 AM EDT Annual physical exam Essential (primary) hypertension IMAGING SCANNED DOCUMENT 02/13/2025 3:00 AM EDT HEPATITIS C AB W/RFLX HCV RNA, QT, RT PCR Routine 02/11/2025 9:38 AM EDT Annual physical exam LIPID PANEL Routine 02/11/2025 9:38 AM EDT Annual physical exam from Last 3 Months or Most Recently Relevant to Health Maintenance Results * REFERRAL TO OPTHALMOLOGY (03/05/2025 3:00 AM EDT) 03/05/2025 3:00 AM EDT Salima Romero PA-C REFERRAL Final Resul t * IMAGING SCANNED DOCUMENT (02/13/2025 3:00 AM EDT) 02/13/2025 3:00 AM EDT us Salima Romero PA-C SCAN IMAGING Final Resul t * HEPATITIS C AB W/RFLX HCV RNA, QT, RT PCR Routine (02/11/2025 9:38 AM EDT) HEPATITIS C ANTIBODY NON-REACT LEILANI NON-REACT LEILANI 02/12/2025 6:24 AM EDT [email or web address] Blood Blood / Unknown 02/11/2025 9 :38 AM EDT 02/12/2025 3:56 AM EDT [facility] - 02/12/2025 6:29 AM EDT . HCV antibody was non-reactive. There is no laboratory evidence of HCV infection. . In most cases, no further action is required. However, if recent HCV exposure is suspected, a test for HCV RNA (test code 10198) is suggested. . For additional information please refer to http://education.Pinstripe/faq/SZN60e1 (This link is being provided for informational/ educational purposes only.) . Salima Romero PA-C LAB - BLOOD DRAW Final Resu lt [email or web address] [address] [address], [email or web address] [address] [address] * LIPID PANEL Routine (02/11/2025 9:38 AM EDT) CHOLESTEROL, TOTAL 111 <200 mg/dL 02/12/2025 5:19 AM EDT [email or web address] HDL CHOLESTEROL 45 > OR = 40 mg/dL 02/12/2025 5:19 AM EDT [email or web address] TRIGLYCERIDES 85 <150 mg/dL 02/12/2025 5:19 AM EDT [email or web address] LDL-CHOLESTEROL 49 mg/dL (calc) 02/12/2025 5:19 AM EDT [email or web address] CHOL/HDLC RATIO 2.5 <5.0 (calc) 02/12/2025 5:19 AM EDT [email or web address] NON-HDL CHOLESTEROL 66 <130 mg/dL (calc) 02/12/2025 5:19 AM EDT [email or web address] Blood Blood / Unknown 02/11/2025 9 :38 AM EDT 02/12/2025 4:07 AM EDT [facility] - 02/12/2025 5:26 AM EDT Reference range: <100 . Desirable range <100 mg/dL for primary prevention; <70 mg/dL for patients with CHD or diabetic patients with > or = 2 CHD risk factors. . LDL-C is now calculated using the Rachelle calculation, which is a validated novel method providing better accuracy than the Friedewald equation in the estimation of LDL-C. Jhoan ANDREWS et al. QUANG. 2013;310(19): 7982-4656 (http://education.Actacell.Marketbright/faq/BQW666) For patients with diabetes plus 1 major ASCVD risk factor, treating to a non-HDL-C goal of <100 mg/dL (LDL-C of <70 mg/dL) is considered a therapeutic option. us Salima Romero PA-C LAB - BLOOD DRAW Final Resu lt [email or web address] [place] [facility] [address] [address], [email or web address] [address] [address] from Last 3 Months or Most Recently Relevant to Health Maintenance Insurance [employer] MEDICARE Care Teams Ham Facer Relationship Specialty Start Date End Date Salima Romero PA-C [facility] [place] [address] PCP - General Primary Care 02/09/25
[2025-05-15 11:36] LABS: Appearance Urine Cloudy; Glucose Urine UA Negative (Negative); PH 7.5 (5.0-9.0); Specific Gravity - Urine 1.015 (1.005-1.025); UMIC TRIGGER UA YES
== END 2025-05-15 09:28 | disposition home or self-care (01) ==
LOC: HO.LAB 09:27
PROVIDERS: Visit Provider Urology
DX: N40.1 Benign prostatic hyperplasia with lower urinary tract symptoms (principal); R35.1 Nocturia
CPT/HCPCS: 81001; 87086

== ENCOUNTER 2025-06-09 13:59 | Outpatient (AMB) | payer MEDICARE, SELFPAY ==
--- NOTE | 2025-06-09 14:09 | MHC.OFFVIS ---
Intake Visit Reasons: Greenlight follow up (NO UA SET) Intake Note: Patient presents today for Green laser Post-Op PVR: 59 mls Urology Medication:Finasteride Blood Thinner:none Antibiotic Allergies:none Town Marshal Required: Yes Accompanied by: Self / Same As Patient Allergies No Known Allergies Allergy (Verified 02/10/25 09:11) HPI Comments Details: Navneet is a pleasant male. He is seen for the following urologic conditions - lower urinary tract symptoms Follow-up from GreenLight laser procedure Did have some urgency and frequency postprocedure This is now resolving Has been off medication Does have good stream and effective emptying Plan for repeat bladder ultrasound and PSA in six-month Bladder outlet obstruction 05/02 GreenLight laser Office cystoscopy 11/30 shows trilobar enlargement Did not tolerate tamsulosin secondary to blood pressure issues - US Retroperitoneam--10/24/24-Prostate ultrasound indicating enlarged prostate with an estimated volume of 107 mL PFSH Medical History BPH (benign prostatic hyperplasia) GERD (gastroesophageal reflux disease) Elevated cholesterol Nocturia HTN (hypertension) Surgical History Hx of appendectomy Hx of hernia repair H/O colonoscopy Social History Are you a primary care transitions manager to a significant other at home: No Do you presently have visiting nurse or other home services: No Patient Tobacco Use Status: Never used Tobacco Review of Systems Const Denies chills and Denies fever(s) Card Reports no additional complaints and Denies syncope Resp Denies cough GI Denies abdominal pain and Denies heartburn Reports as per HPI and Denies change in libido Neuro Denies syncope Psych Denies change in libido Endo Denies change in libido Physical Exam Const General: cooperative, healthy appearing, comfortable and no acute distress Orientation/consciousness: patient oriented x3 HEENT Face and sinus: Yes normal facial exam Mouth: moist mucous membranes Neck Neck: Yes normal visual inspection, Yes full ROM and Yes trachea midline Chest Chest palpation & inspection: normal inspection of the chest Resp Effort & Inspection: normal respiratory effort, able to speak in complete sentences and no respiratory distress GI Inspection: Yes normal to inspection Back/Spine/Pelvis Cervical Spine: normal cervical lordosis Thoracic/Lumbar Spine: thoracic and lumbar spine normal to inspection Skin General skin exam: no rashes or lesions noted Neuro General: patient oriented x3, gait normal, tone normal and moves all extremities Extrem General: Yes normal to inspection and Yes capillary refill normal Office Procedures Post Void Residual Post Residual Void Post Void Residual (PVR): 59 22721-Yitp Void Residual by ultrasound Assessment & Plan Assessment & Plan (1) BPH loc w urin obs/LUTS: Code(s): N40.1 - Benign prostatic hyperplasia with lower urinary tract symptoms Category: Medical Plan Six-month follow-up PSA Orders: Orders AMB Post Void Residual by ultrasound Today N40.1 - Benign prostatic hyperplasia with lower urinary tract symptoms US bladder 6 Months N40.1 - Benign prostatic hyperplasia with lower urinary tract symptoms Prostate Specific Antigen 6 Months N40.1 - Benign prostatic hyperplasia with lower urinary tract symptoms Medications: Discontinued finasteride (Proscar) Discontinued Reason: Patient Completed Course 5 mg PO DAILY 90 tabs 3RF Patient Instructions: This note is constructed using voice recognition software. While every effort has been made to ensure accuracy civil service clerk errors may have been included. Imaging studies, laboratory and physical exam results were discussed and reviewed in detail. No major barriers to patient understanding were identified. An opportunity to ask questions regarding the treatment plan was provided. All questions were answered. The patient expressed understanding and agreement with the above treatment plan. The patient is aware they should contact our office by phone for worsening of their current condition or the appearance of new urologic symptoms. Compliance is encouraged with any medications and followup testing that is ordered. It is a privilege to participate in the urologic care of your patient. If you have any questions or concerns regarding treatment for the above conditions, or other urologic issues, please do not hesitate to contact me. The office telephone contact is [phone]. Sincerely, Dr Evan Allan MD, [facility] - Urology Compassionate Specialist Care for the Genitourinary System Coding Level of Care Code Est Pt Level 3 (57493) Complex visit Add On G2211 Diagnoses BPH loc w urin obs/LUTS N40.1 CPT Codes Post Residual Void - PVR CPT Code: 73321-Bljy Void Residual by ultrasound ([id number])
== END 2025-06-09 15:04 | disposition home or self-care (01) ==
LOC: HO.HUSH 14:00
PROVIDERS: Visit Provider Urology
DX: N40.1 Benign prostatic hyperplasia with lower urinary tract symptoms (principal)
CPT/HCPCS: 99024

== ENCOUNTER → 2025-06-09 13:59 | Outpatient (BNVA) | payer MEDICARE, SELFPAY | PROVIDERS: Visit Provider Urology | DX: N40.1 Benign prostatic hyperplasia with lower urinary tract symptoms (principal); R35.0 Frequency of micturition; R39.15 Urgency of urination | CPT/HCPCS: 51798; 99212 ==